=== PATIENT | male | born 1965 | race Caucasian/White ===

== ENCOUNTER 2021-03-02 10:18 | Inpatient (IN) | payer MEDICAID, SELFPAY ==
[2021-03-02] VITALS (19 sets, daily range): BP systolic 132–167; BP diastolic 71–91; PULSE 96–113; RESP 14–24; TEMP 36.7–38.1; O2SAT 88–94; BMI 34.8
--- NOTE | 2021-03-02 10:27 | DI.RAD.S_ITS ---
PROCEDURE: XR CHEST 1V INDICATIONS: chest pain TECHNIQUE: One view of the chest was acquired. COMPARISON: None. FINDINGS: Surgical changes and devices: None. Lungs and pleura: A subtle infiltrate in the left lower lobe is probably vasculature or overlying soft tissue. No focal consolidation or mass. Mediastinum: Mediastinal contours appear normal. Heart size is normal. Bones and chest wall: No suspicious bony lesions. Overlying soft tissues appear unremarkable. IMPRESSION: 1. Subtle infiltrate in left lower lobe is likely vasculature or overlying soft tissue versus an early pneumonia or atelectasis. 2. Otherwise no acute cardiopulmonary abnormality. Dictated by: Ravinder Mason M.D. on 03/02/2021 at 10:03 Approved by: Ravinder Mason M.D. on 03/02/2021 at 10:07
--- NOTE | 2021-03-02 10:30 | ED.SYNCOPE ---
HPI - Syncope General Chief Complaint: Syncope Stated Complaint: passed out in shower this morning Time Seen by Provider: 03/02/21 10:23 Source: patient Mode of arrival: Wheelchair Limitations: no limitations History of Present Illness HPI narrative: This is a 55-year-old male comes emergency department with complaint of syncopal episode in the shower this morning patient states he has had a little bit of nasal congestion and sinus pressure since last week. Patient has not had any fevers. No chills. He has had some mild shortness of breath. He denies any chest pain or pressure. He denies any headache. He states that he felt lightheaded while ambulating to the shower he felt like he was going to pass out and thinks that he did in the shower. He does not recall hitting the floor. He is unsure if there was a loss of time but his states she heard 3 bumps like he may have fallen 3 times. He denies any vomiting he does feel nauseated right now. No diarrhea constipation. No urinary symptoms. He is unsure if his tetanus is up-to-date. He states he is supposed to be on a diuretic for hypertension and extra fluid. He denies any prior surgeries. No allergies to medications. He is not vaccinated for coronavirus. He denies tobacco, occasional alcohol, no illicit. His primary care is Sandra Willis and he is accompanied by his . Related Data Previous Rx's Medication Instructions Recorded losartan 50 mg tablet 50 mg PO DAILY #30 tab 03/04/21 metformin 500 mg tablet 500 mg PO 0800,1700 #60 tab 03/04/21 L.acidophilus-L.bulgar-B.bifid-S.thermoph 1 ea PO TIDWM #90 tab 03/14/21 1 billion cell-250 mg tablet (Bacid) albuterol sulfate 90 mcg/actuation 2 inh INHALATION Q4H PRN #1 ea 03/14/21 breath activated powder inhaler ascorbic acid (vitamin C) 500 mg 1,000 mg PO DAILY #120 tab 03/14/21 tablet (Vitamin C) aspirin 81 mg tablet,delayed 162 mg PO DAILY #60 tab 03/14/21 release cefdinir 300 mg capsule 300 mg PO BID #20 cap 03/14/21 cholecalciferol (vitamin D3) 25 1,000 unit PO DAILY #30 tab 03/14/21 mcg (1,000 unit) tablet codeine 10 mg-guaifenesin 100 mg/5 10 ml PO Q6H PRN #120 ml 03/14/21 mL oral liquid cyanocobalamin (vitamin B-12) 100 100 mcg PO DAILY #30 tab 03/14/21 mcg tablet (Vitamin B-12) dexamethasone 1 mg tablet 1 mg PO DIRECTED #30 tab 03/14/21 doxycycline hyclate 100 mg tablet 100 mg PO BID #20 tab 03/14/21 famotidine 40 mg tablet 20 mg PO BID #60 tab 03/14/21 furosemide 20 mg tablet 20 mg PO DAILY #30 tab 03/14/21 glyburide 5 mg tablet 5 mg PO DAILY #30 tab 03/14/21 guaifenesin 600 mg tablet, 600 mg PO BID #20 tab 03/14/21 extended release 12 hr (Mucus Relief ER) insulin lispro 100 unit/mL 0 unit (0 mL) SUBCUT ACHS #10 ml 03/14/21 subcutaneous solution (Humalog U-100 Insulin) ipratropium 0.5 mg-albuterol 3 mg 3 ml INHALATION Q4-6H PRN #90 ml 03/14/21 (2.5 mg base)/3 mL nebulization soln sucralfate 1 gram tablet 1 gm PO ACHS #120 tab 03/14/21 zinc sulfate 50 mg zinc (220 mg) 220 mg PO DAILY #30 cap 03/14/21 capsule Allergies Allergy/AdvReac Type Severity Reaction Status Date / Time No Known Drug Allergies Allergy Verified 03/02/21 10:27 Review of Systems Review of Systems ROS Unobtainable: All systems reviewed & are unremarkable except as noted in HPI and below Patient History Medical History Essential hypertension High cholesterol Hypertension Obesity (BMI 30-39.9) Syncope Surgical History H/O left inguinal hernia repair Family History Mother CAD (coronary artery disease) Diabetes mellitus Father CVA (cerebral vascular accident) Social History household members: spouse Smoking Status: Never smoker Smoking Status: Unknown if ever smoked alcohol intake frequency: holidays/special occasions only Substance Use Type: does not use Exam Narrative Exam Narrative: GEN: well nourished, well appearing male, alert and oriented x 3, patient appears to be in mild distress. HEENT: Atraumatic, pupils are equal round reactive to light, extraocular movements are intact, nares are clear. Throat is clear without any exudates, erythema, tonsillar enlargement or uvular deviation HEART: Tachycardic but Regular rate and rhythm without murmur, clicks, rubs. Pulses are equal in upper and lower extremities LUNGS:Lungs clear to auscultation, no wheezes, rales, mild crackles bilateral lower lobes, chest moves symmetrically ABD:bowel sounds normal, soft, non-tender, no guarding, rebound, rigidity, no masses noted, no hepatosplenomegaly :No CVA tenderness MSCL: Non-tender, no muscle atrophy, muscles strength 5/5 upper and lower extremities, full range of motion, normal gait NEURO:CN 2-12 intact, sensation normal SKIN: Patient has superficial laceration about 3 cm across the anterior odonnell there is no subcutaneous exposure. Initial Vital Signs Initial Vital Signs: Vital Signs Temperature 98.0 F 03/02/21 10:23 Pulse Rate 112 H 03/02/21 10:23 Respiratory Rate 14 03/02/21 10:23 Blood Pressure 167/91 H 03/02/21 10:23 Pulse Oximetry 93 03/02/21 10:23 Procedures Procedural Sedation ASA Class: I Additional Comments: Patient did require significant amount medications. He initially received 160 mg of propofol followed by 80 mg of ketamine. This actually made him more tense. Patient required additional propofol and had another 160 followed by 80mg for patient reached moderate sedation. Patient did finally relax and we were able to reduce the joint. He did tolerate the procedure well. Sling was placed. Scores PERC Score Age greater than or equal to 50 years: Yes Heart rate greater than or equal to 100 bpm: Yes Room Air O2 Sat less than 95%: Yes Unilateral leg swelling: No Recent trauma or surgery: No Hemoptysis: No Prior PE or DVT: No Hormone Use: No Total PERC Score: 3 Course Orders Ordered: Discontinued Medications Acetaminophen (Acetaminophen 325 Mg Tablet) 650 mg PO Q6HR PRN PRN Reason: Fever/Mild Pain (1-3) Last Admin: 03/02/21 17:22 Dose: 650 mg Documented by: VASU Dexamethasone (Dexamethasone 10 Mg/Ml Vial) 6 mg IV NOW ONE Stop: 03/02/21 14:33 Last Admin: 03/02/21 14:38 Dose: Not Given Documented by: JERMAINE Dextrose (Dextrose 50 % In Water 25 Gm/50 Ml Syringe) 25 gm IV PRN PRN; Protocol PRN Reason: Hypoglycemia Diphtheria/Tetanus/Acell Pertussis (Tet,Diph,Pertuss(Acell),Vac/Pf 0.5 Ml Syringe) 0.5 ml IM .ONCE ONE Stop: 03/02/21 11:05 Last Admin: 03/02/21 11:27 Dose: 0.5 ml Documented by: IBRAHIMA Enoxaparin Sodium (Enoxaparin 40 Mg/0.4 Ml Syringe) 40 mg SUBCUT DAILY KVNG Last Admin: 03/04/21 09:19 Dose: 40 mg Documented by: Admin: 03/03/21 10:17 Dose: 40 mg Documented by: VASU Guaifenesin/Codeine Phosphate (Codeine/Guaifenesin Liquid 5ml Udc) 5 ml PO Q6H PRN PRN Reason: Cough Last Admin: 03/03/21 18:08 Dose: 5 ml Documented by: Admin: 03/03/21 10:18 Dose: 5 ml Documented by: Admin: 03/02/21 22:19 Dose: 5 ml Documented by: MARCOS Remdesivir 200 mg/ Sodium (Chloride) 250 mls @ 250 mls/hr IV NOW ONE Stop: 03/02/21 15:31 Last Infusion: 03/02/21 16:06 Dose: 0 mls/hr Documented by: Admin: 03/02/21 15:04 Dose: 250 mls/hr Documented by: IBRAHIMA Lactated Ringer's (Lactated Ringers) 1,000 mls @ 200 mls/hr IV CONT KVNG Stop: 03/02/21 21:14 Last Admin: 03/02/21 17:22 Dose: 200 mls/hr Documented by: VASU Remdesivir 100 mg/ Sodium (Chloride) 250 mls @ 250 mls/hr IV 1500 KVNG Stop: 03/06/21 15:59 Last Admin: 03/04/21 16:12 Dose: Not Given Documented by: Infusion: 03/04/21 13:32 Dose: 0 mls/hr Documented by: Admin: 03/03/21 15:12 Dose: 250 mls/hr Documented by: VASU Ibuprofen (Ibuprofen 600 Mg Tablet) 600 mg PO Q6HR PRN PRN Reason: Fever/Mild Pain (1-3) Last Admin: 03/03/21 18:08 Dose: 600 mg Documented by: Admin: 03/03/21 10:18 Dose: 600 mg Documented by: VASU Insulin Glargine (Insulin Glargine 100 Unit/Ml 3ml Pen) 20 unit SUBCUT BEDTIME KVNG Last Admin: 03/03/21 22:20 Dose: 20 unit Documented by: MARCOS Pikeigned by: ALBA Admin: 03/02/21 22:20 Dose: 20 unit Documented by: MARCOS Albert by: ALBA Insulin Human Lispro (Insulin Lispro 100 Unit/Ml 3ml Vial) 0 unit SUBCUT ACHS KVNG; Protocol Last Admin: 03/04/21 13:30 Dose: 1 unit Documented by: PALMIRA Pikeigned by: LASHAY Admin: 03/04/21 09:14 Dose: 1 unit Documented by: PALMIRA Pikeigned by: DANIEL Admin: 03/03/21 22:21 Dose: Not Given Documented by: Admin: 03/03/21 18:12 Dose: 1 unit Documented by: VASU Pikeigned by: LASHAY Admin: 03/03/21 12:30 Dose: 100 unit Documented by: VASU Pikeigned by: LASHAY Admin: 03/03/21 10:33 Dose: 1 unit Documented by: VASU Pikeigned by: LASHAY Admin: 03/02/21 22:20 Dose: Not Given Documented by: Admin: 03/02/21 17:25 Dose: 5 unit Documented by: VASU Albert by: KATHY Losartan Potassium (Losartan 50 Mg Tablet) 50 mg PO DAILY [facility] Last Admin: 03/04/21 09:19 Dose: 50 mg Documented by: Admin: 03/03/21 10:18 Dose: 50 mg Documented by: VASU Losartan Potassium (Losartan 50 Mg Tablet) 50 mg PO NOW ONE Stop: 03/02/21 16:05 Last Admin: 03/02/21 17:22 Dose: 50 mg Documented by: VASU Magnesium Hydroxide (Magnesium Hydroxide 30 Ml Udc) 30 ml PO DAILY PRN PRN Reason: Constipation Metformin HCl (Metformin Hcl 500 Mg Tablet) 500 mg PO 0800,1700 [facility] Last Admin: 03/04/21 09:20 Dose: 500 mg Documented by: Admin: 03/03/21 18:09 Dose: 500 mg Documented by: Admin: 03/03/21 10:18 Dose: 500 mg Documented by: Admin: 03/02/21 17:22 Dose: 500 mg Documented by: VASU Naloxone HCl (Naloxone 0.4 Mg/Ml Vial) 0.2 mg IV Q2MIN PRN PRN Reason: Opiate Reversal Ondansetron HCl (Ondansetron 4 Mg/2 Ml Inj) 4 mg IV NOW ONE Stop: 03/02/21 10:57 Last Admin: 03/02/21 10:58 Dose: 4 mg Documented by: WOLF Ondansetron HCl (Ondansetron 4 Mg/2 Ml Inj) 4 mg IV NOW ONE Stop: 03/02/21 14:06 Last Admin: 03/02/21 14:12 Dose: 4 mg Documented by: LAMONT Ondansetron HCl (Ondansetron 4 Mg/2 Ml Inj) 4 mg IV Q8HR PRN PRN Reason: Nausea And Vomiting Sodium Chloride (Sodium Chloride 0.9% Flush) 10 ml IV PRN PRN PRN Reason: Flush Sodium Chloride (Sodium Chloride 0.9% Flush) 10 ml IV BID [facility] Last Admin: 03/04/21 09:20 Dose: 10 ml Documented by: Admin: 03/03/21 22:22 Dose: 10 ml Documented by: Admin: 03/03/21 10:17 Dose: 10 ml Documented by: VASU Vital Signs Vital signs: Vital Signs - 8 hr 03/02/21 10:23 03/02/21 10:25 03/02/21 10:30 Temperature 98.0 F Pulse Rate 112 H 110 H 104 H Respiratory Rate 14 15 19 Blood Pressure 167/91 H 167/91 H 162/86 H Pulse Oximetry 93 93 93 03/02/21 11:07 03/02/21 11:30 03/02/21 12:00 Temperature Pulse Rate 110 H 107 H 101 H Respiratory Rate 20 24 23 Blood Pressure 162/86 H Pulse Oximetry 92 91 90 L 03/02/21 12:30 03/02/21 12:35 03/02/21 13:00 Temperature Pulse Rate 96 H 104 H 96 H Respiratory Rate 21 20 20 Blood Pressure 142/81 H 141/71 H 132/74 Pulse Oximetry 91 92 92 03/02/21 13:30 03/02/21 14:00 03/02/21 14:30 Temperature Pulse Rate 106 H 107 H 104 H Respiratory Rate 20 20 20 Blood Pressure 139/79 Pulse Oximetry 91 91 88 L MDM - Syncope Lab Data Result diagrams: 03/03/21 13:00 03/03/21 13:00 Labs: Lab Results 03/02/21 03/02/21 03/02/21 Range/Units 10:25 10:25 10:25 WBC 5.3 (4.5-11.0) X10^3/uL RBC 5.33 (4.5-5.9) X10^6/uL Hgb 15.6 (13.5-17.5) g/dL Hct 46.4 (41-53) % MCV 86.9 (80-100) fL MCH 29.3 (26-34) PG MCHC 33.7 (30-36) % RDW 12.7 (11.6-14.8) % Plt Count 136 L (150-400) X10^3/uL Neut % (Auto) 73.0 (50-75) % Lymph % (Auto) 16.8 L (25-40) % Benzie % (Auto) 9.4 (3-14) % Eos % (Auto) 0.1 L (2-4) % Baso % (Auto) 0.7 (0-2) % Neut # (Auto) 3900 (7577-1633) /uL Lymph # (Auto) 900 L (0689-7220) /uL Benzie # (Auto) 500 (0-900) /uL Eos # (Auto) 0 (0-450) /uL Baso # (Auto) 0 (0-100) /uL PT (10.1-12.7) SECONDS INR (0.9-1.3) APTT (26.4-36.2) SECONDS D-Dimer (<230) ng/mL Sodium 132 L (137-145) mmol/L Potassium 4.8 (3.4-5.1) mmol/L Chloride 97 L (98-107) mmol/L Carbon Dioxide 29 (22-32) mmol/L BUN 14 (9-20) mg/dL Creatinine 1.05 (0.66-1.25) mg/dL Estimated GFR > 60.0 (>60) mL/min BUN/Creatinine Ratio 13.3 (6-22) Glucose 337 H (70-100) mg/dL Hemoglobin A1c (4.0-6.0) % Lactate (0.7-2.1) mmol/L Calcium 8.5 (8.4-10.2) mg/dL Magnesium 2.0 (1.6-2.3) mg/dL Total Bilirubin 0.5 (0.2-1.3) mg/dL AST 207 H (17-59) IU/L ALT 239 H (<50) IU/L Alkaline Phosphatase 60 (38-126) U/L Total Creatine Kinase 1114 H (55-170) U/L CK-MB (CK-2) 3.39 H (<2.37) ng/mL CK-MB (CK-2) Rel Index 0.3 L (1.5-5.0) % Troponin I < 0.012 (0.01-0.034) ng/mL NT-Pro-B Natriuret Pep (<125) pg/mL Total Protein 8.0 (6.3-8.2) g/dL Albumin 4.3 (3.5-5.0) g/dL Globulin 3.7 (1.7-4.1) g/dL Albumin/Globulin Ratio 1.2 (1.0-2.8) Lipase 254 (23-300) U/L SARS-CoV-2 (PCR) Positive H (Negative) Influenza A (RT-PCR) (NEGATIVE) Influenza B (RT-PCR) (NEGATIVE) 03/02/21 03/02/21 03/02/21 Range/Units 10:25 11:00 11:00 WBC (4.5-11.0) X10^3/uL RBC (4.5-5.9) X10^6/uL Hgb (13.5-17.5) g/dL Hct (41-53) % MCV (80-100) fL MCH (26-34) PG MCHC (30-36) % RDW (11.6-14.8) % Plt Count (150-400) X10^3/uL Neut % (Auto) (50-75) % Lymph % (Auto) (25-40) % Benzie % (Auto) (3-14) % Eos % (Auto) (2-4) % Baso % (Auto) (0-2) % Neut # (Auto) (3450-4386) /uL Lymph # (Auto) (0078-1698) /uL Benzie # (Auto) (0-900) /uL Eos # (Auto) (0-450) /uL Baso # (Auto) (0-100) /uL PT (10.1-12.7) SECONDS INR (0.9-1.3) APTT (26.4-36.2) SECONDS D-Dimer (<230) ng/mL Sodium (137-145) mmol/L Potassium (3.4-5.1) mmol/L Chloride (98-107) mmol/L Carbon Dioxide (22-32) mmol/L BUN (9-20) mg/dL Creatinine (0.66-1.25) mg/dL Estimated GFR (>60) mL/min BUN/Creatinine Ratio (6-22) Glucose (70-100) mg/dL Hemoglobin A1c 10.9 H (4.0-6.0) % Lactate (0.7-2.1) mmol/L Calcium (8.4-10.2) mg/dL Magnesium (1.6-2.3) mg/dL Total Bilirubin (0.2-1.3) mg/dL AST (17-59) IU/L ALT (<50) IU/L Alkaline Phosphatase (38-126) U/L Total Creatine Kinase (55-170) U/L CK-MB (CK-2) (<2.37) ng/mL CK-MB (CK-2) Rel Index (1.5-5.0) % Troponin I (0.01-0.034) ng/mL NT-Pro-B Natriuret Pep (<125) pg/mL Total Protein (6.3-8.2) g/dL Albumin (3.5-5.0) g/dL Globulin (1.7-4.1) g/dL Albumin/Globulin Ratio (1.0-2.8) Lipase (23-300) U/L SARS-CoV-2 (PCR) Positive H (Negative) Influenza A (RT-PCR) Flu a negative (NEGATIVE) Influenza B (RT-PCR) Flu b negative (NEGATIVE) 03/02/21 03/02/21 03/02/21 Range/Units 11:23 11:23 11:23 WBC (4.5-11.0) X10^3/uL RBC (4.5-5.9) X10^6/uL Hgb (13.5-17.5) g/dL Hct (41-53) % MCV (80-100) fL MCH (26-34) PG MCHC (30-36) % RDW (11.6-14.8) % Plt Count (150-400) X10^3/uL Neut % (Auto) (50-75) % Lymph % (Auto) (25-40) % Benzie % (Auto) (3-14) % Eos % (Auto) (2-4) % Baso % (Auto) (0-2) % Neut # (Auto) (7141-1507) /uL Lymph # (Auto) (0042-8940) /uL Benzie # (Auto) (0-900) /uL Eos # (Auto) (0-450) /uL Baso # (Auto) (0-100) /uL PT (10.1-12.7) SECONDS INR (0.9-1.3) APTT (26.4-36.2) SECONDS D-Dimer < 200 (<230) ng/mL Sodium (137-145) mmol/L Potassium (3.4-5.1) mmol/L Chloride (98-107) mmol/L Carbon Dioxide (22-32) mmol/L BUN (9-20) mg/dL Creatinine (0.66-1.25) mg/dL Estimated GFR (>60) mL/min BUN/Creatinine Ratio (6-22) Glucose (70-100) mg/dL Hemoglobin A1c (4.0-6.0) % Lactate 2.9 H (0.7-2.1) mmol/L Calcium (8.4-10.2) mg/dL Magnesium (1.6-2.3) mg/dL Total Bilirubin (0.2-1.3) mg/dL AST (17-59) IU/L ALT (<50) IU/L Alkaline Phosphatase (38-126) U/L Total Creatine Kinase (55-170) U/L CK-MB (CK-2) (<2.37) ng/mL CK-MB (CK-2) Rel Index (1.5-5.0) % Troponin I (0.01-0.034) ng/mL NT-Pro-B Natriuret Pep < 11 (<125) pg/mL Total Protein (6.3-8.2) g/dL Albumin (3.5-5.0) g/dL Globulin (1.7-4.1) g/dL Albumin/Globulin Ratio (1.0-2.8) Lipase (23-300) U/L SARS-CoV-2 (PCR) (Negative) Influenza A (RT-PCR) (NEGATIVE) Influenza B (RT-PCR) (NEGATIVE) 03/02/21 03/02/21 03/02/21 Range/Units 11:23 14:03 14:03 WBC (4.5-11.0) X10^3/uL RBC (4.5-5.9) X10^6/uL Hgb (13.5-17.5) g/dL Hct (41-53) % MCV (80-100) fL MCH (26-34) PG MCHC (30-36) % RDW (11.6-14.8) % Plt Count (150-400) X10^3/uL Neut % (Auto) (50-75) % Lymph % (Auto) (25-40) % Benzie % (Auto) (3-14) % Eos % (Auto) (2-4) % Baso % (Auto) (0-2) % Neut # (Auto) (1105-9120) /uL Lymph # (Auto) (4670-8414) /uL Benzie # (Auto) (0-900) /uL Eos # (Auto) (0-450) /uL Baso # (Auto) (0-100) /uL PT 12.3 (10.1-12.7) SECONDS INR 1.1 (0.9-1.3) APTT 34 (26.4-36.2) SECONDS D-Dimer (<230) ng/mL Sodium (137-145) mmol/L Potassium (3.4-5.1) mmol/L Chloride (98-107) mmol/L Carbon Dioxide (22-32) mmol/L BUN (9-20) mg/dL Creatinine (0.66-1.25) mg/dL Estimated GFR (>60) mL/min BUN/Creatinine Ratio (6-22) Glucose (70-100) mg/dL Hemoglobin A1c (4.0-6.0) % Lactate 1.4 (0.7-2.1) mmol/L Calcium (8.4-10.2) mg/dL Magnesium (1.6-2.3) mg/dL Total Bilirubin (0.2-1.3) mg/dL AST (17-59) IU/L ALT (<50) IU/L Alkaline Phosphatase (38-126) U/L Total Creatine Kinase (55-170) U/L CK-MB (CK-2) (<2.37) ng/mL CK-MB (CK-2) Rel Index (1.5-5.0) % Troponin I < 0.012 (0.01-0.034) ng/mL NT-Pro-B Natriuret Pep (<125) pg/mL Total Protein (6.3-8.2) g/dL Albumin (3.5-5.0) g/dL Globulin (1.7-4.1) g/dL Albumin/Globulin Ratio (1.0-2.8) Lipase (23-300) U/L SARS-CoV-2 (PCR) (Negative) Influenza A (RT-PCR) (NEGATIVE) Influenza B (RT-PCR) (NEGATIVE) Imaging Data Chest x-ray: Radiologist's Impression: [address] [address] XRay Report Signed Patient: Glenroy Sloan MR#: [id number] : 1965 Acct:[id number] Age/Sex: 55 / M Date of Service: 03/02/21 Loc: ED Accession Number: [id number] ?? Procedure: XR chest 1V Ordering Provider: Mank,Dominique C D.O. PROCEDURE:? XR CHEST 1V ? INDICATIONS:? chest pain ? TECHNIQUE:? One view of the chest was acquired.? ? COMPARISON:? None. ? FINDINGS:? ? Surgical changes and devices:? None.? ? Lungs and pleura:? A subtle infiltrate in the left lower lobe is probably vasculature or overlying soft tissue.? No focal consolidation or mass. ? Mediastinum:? Mediastinal contours appear normal.? Heart size is normal.? ? Bones and chest wall:? No suspicious bony lesions.? Overlying soft tissues appear unremarkable.? ? IMPRESSION:? 1. Subtle infiltrate in left lower lobe is likely vasculature or overlying soft tissue versus an early pneumonia or atelectasis. 2. Otherwise no acute cardiopulmonary abnormality. ? ? Dictated by: Ravinder Mason M.D. on 03/02/2021 at 10:03 ? ? Approved by: Ravinder Mason M.D. on 03/02/2021 at 10:07?? CT scan - head: Radiologist's Impression: Glenroy Sloan??55??M??1965 ? Allergy/Adv: No Known Drug Allergies (More??) Close Tibia/Fibula X-Ray (Signed) Ravinder Mason - 03/02/[address] (Signed) Ravinder Mason - 03/02/21 Chest X-Ray (Signed) Ravinder Mason - 03/02/21 Launch?[place] [address] CT Scan Report Signed Patient: Glenroy Sloan MR#: [id number] : 1965 Acct:[id number] Age/Sex: 55 / M Date of Service: 03/02/21 Loc: ED Accession Number: [id number] ?? Procedure: CT head/brain wo con Ordering Provider: Dominique Luz D.O. PROCEDURE:? CT HEAD/BRAIN WO CON ? INDICATIONS:? syncope ? TECHNIQUE:? Noncontrast 4.5 mm thick angled axial sections acquired from the foramen magnum to the vertex, with coronal and sagittal reformats.? For radiation dose reduction, the following was used:? automated exposure control, adjustment of mA and/or kV according to patient size.? ? COMPARISON:? None. ? FINDINGS:? Image quality:? Excellent.? ? CSF spaces:? Basal cisterns are patent.? No extra-axial fluid collections.? Ventricles are normal in size and shape.? ? Brain:? No midline shift.? No intracranial masses or hemorrhage.? Mojica-white matter interface is normal.? ? Skull and face:? Calvarium and visualized facial bones are intact, without suspicious lesions.? ? Sinuses:? Visualized sinuses and mastoids are clear.? ? IMPRESSION:? No acute intracranial abnormality. ? ? Dictated by: Ravinder Mason M.D. on 03/02/2021 at 10:19 ? ? Approved by: Ravinder Mason M.D. on 03/02/2021 at 10:21?? Extremity x-ray #1: Radiologist's Impression: [address] [address] XRay Report Signed Patient: Glenroy Sloan MR#: [id number] : 1965 Acct:[id number] Age/Sex: 55 / M Date of Service: 03/02/21 Loc: ED Accession Number: [id number] ?? Procedure: XR tibia fibula RT 2V Ordering Provider: Dominique Luz D.O. PROCEDURE:? XR TIBIA FUBULA RT 2V ? INDICATIONS:? right leg pain, syncope ? TECHNIQUE:? 2 views of the tibia and fibula were acquired.? ? COMPARISON:? None. ? FINDINGS:? ? Bones:? No fractures or dislocations.? No suspicious bony lesions.? ? Soft tissues:? No suspicious soft tissue calcifications or masses.? ? IMPRESSION:? No acute abnormality of the right tibia and fibula. ? ? Dictated by: Ravinder Mason M.D. on 03/02/2021 at 10:08 ? ? Approved by: Ravinder Mason M.D. on 03/02/2021 at 10:09?? ECG Data Attestation: I personally reviewed and interpreted this ECG as follows: Prior ECG tracings: not available for review Interpretation: Sinus tach, rate of 102 DE 154 QRS is [address] changes. Nonspecific change Q-wave in 3 and AVF. MDM Narrative Medical decision making narrative: This is a 55-year-old male who comes in with complaint of syncope in the shower. He has had a little bit of a sinus infection recently and he test positive for COVID today. Patient's head CT is negative, chest x-ray does show some pneumonia, his labs are negative for D-dimer, troponin is not elevated, patient has not been persistently hypoxic but has had tachycardia. He had a single dip into the 89% range but has been typically in the 90-91% range. Discussed with Dr. Her gaming who accepts for admission. Because patient has not been hypoxic holding on dexamethasone but will give remdesivir. Patient did have a superficial laceration on his right anterior odonnell but does not require repair. Tib-fib x-ray is negative. Patient is high risk for decompensation with his elevated BMI, history of hypertension likely untreated diabetes as his glucose is in the 300 range today. Discharge Plan Departure Patient Disposition: Admitted as Observation Clinical Impression: Syncope, Pneumonia due to COVID-19 virus Admit Date/Time: 03/03/21 09:21 Admit Provider: Bernard Ascencio
[2021-03-02 10:33] LABS: Add Manual Diff / Slide Review NO; Basophils Absolute Auto 0 /uL (0-100); Basophils Percent Auto 0.7 % (0-2); Eosinophils Absolute Auto 0 /uL (0-450); Eosinophils Percent Auto 0.1 % (2-4); Hematocrit 46.4 % (41-53); Hemoglobin 15.6 g/dL (13.5-17.5); Lymphocytes Absolute Auto 900 /uL (1100-4500); Lymphocytes Percent Auto 16.8 % (25-40); Mean Corpuscular HGB Conc 33.7 % (30-36); Mean Corpuscular Hemoglobin 29.3 PG (26-34); Mean Corpuscular Volume 86.9 fL (80-100); Monocytes Absolute Auto 500 /uL (0-900); Monocytes Percent Auto 9.4 % (3-14); Neutrophils Absolute Auto 3900 /uL (1500-7000); Platelet Count 136 X10^3/uL (150-400); Red Blood Cell Count 5.33 X10^6/uL (4.5-5.9); Red Cell Distribution Width 12.7 % (11.6-14.8); White Blood Cell Count 5.3 X10^3/uL (4.5-11.0)
[2021-03-02 10:48] LABS: COVID19 -Nasal RAPID POSITIVE (Negative)
--- NOTE | 2021-03-02 10:48 | DI.RAD.S_ITS ---
PROCEDURE: XR TIBIA FUBULA RT 2V INDICATIONS: right leg pain, syncope TECHNIQUE: 2 views of the tibia and fibula were acquired. COMPARISON: None. FINDINGS: Bones: No fractures or dislocations. No suspicious bony lesions. Soft tissues: No suspicious soft tissue calcifications or masses. IMPRESSION: No acute abnormality of the right tibia and fibula. Dictated by: Ravinder Mason M.D. on 03/02/2021 at 10:08 Approved by: Ravinder Mason M.D. on 03/02/2021 at 10:09
--- NOTE | 2021-03-02 10:48 | DI.CT.S_ITS ---
PROCEDURE: CT HEAD/BRAIN WO CON INDICATIONS: syncope TECHNIQUE: Noncontrast 4.5 mm thick angled axial sections acquired from the foramen magnum to the vertex, with coronal and sagittal reformats. For radiation dose reduction, the following was used: automated exposure control, adjustment of mA and/or kV according to patient size. COMPARISON: None. FINDINGS: Image quality: Excellent. CSF spaces: Basal cisterns are patent. No extra-axial fluid collections. Ventricles are normal in size and shape. Brain: No midline shift. No intracranial masses or hemorrhage. Mojica-white matter interface is normal. Skull and face: Calvarium and visualized facial bones are intact, without suspicious lesions. Sinuses: Visualized sinuses and mastoids are clear. IMPRESSION: No acute intracranial abnormality. Dictated by: Ravinder Mason M.D. on 03/02/2021 at 10:19 Approved by: Ravinder Mason M.D. on 03/02/2021 at 10:21
[2021-03-02 10:49] LABS: Alanine Aminotransferase 239 IU/L (<50); Albumin 4.3 g/dL (3.5-5.0); Albumin Globulin Ratio 1.2 (1.0-2.8); Alkaline Phosphatase 60 U/L (38-126); Aspartate Aminotransferase 207 IU/L (17-59); BUN Creatinine Ratio 13.3 (6-22); Bilirubin Total 0.5 mg/dL (0.2-1.3); Blood Urea Nitrogen 14 mg/dL (9-20); Calcium 8.5 mg/dL (8.4-10.2); Carbon Dioxide 29 mmol/L (22-32); Chloride 97 mmol/L (98-107); Creatine Kinase 1114 U/L (55-170); Estimated Glomerular Filt Rate > 60.0 mL/min (>60); Globulin 3.7 g/dL (1.7-4.1); Glucose 337 mg/dL (70-100); HEMOLYSIS < 15 (0-50); Lipase 254 U/L (23-300); Potassium 4.8 mmol/L (3.4-5.1); Sodium 132 mmol/L (137-145)
[2021-03-02] MEDS: ONDANSETRON 4 MG/2 ML INJ IV ×2 (10:58→14:12)
[2021-03-02 11:00] LABS: Troponin I < 0.012 ng/mL (0.01-0.034)
[2021-03-02 11:03] LABS: CKMB % Relative Index 0.3 % (1.5-5.0); Creatine Kinase MB 3.39 ng/mL (<2.37)
[2021-03-02] MEDS: TET,DIPH,PERTUSS(ACELL),VAC/PF 0.5 ML SYRINGE IM (11:27)
[2021-03-02 11:48] LABS: INR 1.1 (0.9-1.3); Prothrombin Time 12.3 SECONDS (10.1-12.7)
[2021-03-02 11:49] LABS: Lactate (Lactic Acid) 2.9 mmol/L (0.7-2.1)
[2021-03-02 11:51] LABS: PTT Partial Thromboplastin Tim 34 SECONDS (26.4-36.2)
[2021-03-02 11:58] LABS: NT-proBNP (BNP-Adult 18+) < 11 pg/mL (<125)
[2021-03-02 12:12] LABS: COVID19 - ADMIT (NP swab/PCR) POSITIVE (Negative)
[2021-03-02 12:32] LABS: D Dimer < 200 ng/mL (<230)
--- NOTE | 2021-03-02 13:09 | PC.NURSE ---
[facility] [phone]
[2021-03-02 13:32] LABS: Reflexed Lactate in 2 Hours Y
[2021-03-02 14:24] LABS: Lactate 2HR (Lactic Acid Rflx) 1.4 mmol/L (0.7-2.1)
--- NOTE | 2021-03-02 14:40 | PC.NURSE ---
pt states he is ok to take remdesevir
[2021-03-02] MEDS: REMDESIVIR 200 MG in SODIUM CHLORIDE 0.9% 210 ML 250 ML IV (15:04)
--- NOTE | 2021-03-02 16:34 | P.HP_ITS ---
History of Present Illness History of Present Illness Date Patient Seen: 03/02/21 Time Patient Seen: 15:00 Chief complaint: passed out in shower this morning Narrative: Patient is 55-year-old male with obesity, hypertension not currently on medication, presented after passing out in the shower this morning. Patient states he has been experiencing sinus infection symptoms for the past week. Specifically he has been feverish, sinus pressure, has been mildly out of breath and has had a mild cough. Patient states his fever finally broke 3 nights ago and he was starting to feel better. Denies nausea or vomiting. This morning he started to feel acutely dizzy while in the shower and subsequently passed out and fell to the shower floor. He got a superficial abrasion on his right leg. Denies chest pain or palpitations. On ED eval he was COVID positive. Additionally he has been moderately hypertensive and tachycardic with respiratory rate in low 20s. He has been mildly hypoxic with O2 sats dropping to 88-89% on room air. Blood work showed normal WBC, mild elevated LFTs, glucose of 337, normal troponin and D-dimer, elevated CK 1100, creatinine 1.05. Lactate was 2.9 initially and 1.4 on repeat. Chest x-ray showed early infiltrate in left lower lobe. Patient denies prior history of diabetes. Patient is not previously vaccinated for COVID. Social history: Nonsmoker Family history: Unremarkable Patient History Family & Social History Safety & Behavioral: Feels Safe in Current Yes Environment Been Physically Hurt or No Threatened By a Person Tobacco & Substance use: Smoking Status Unknown if ever smoked alcohol intake frequency holiday/special occasion Substance Use Type does not use Meds Home Medications and Allergies Allergies Allergy/AdvReac Type Severity Reaction Status Date / Time No Known Drug Allergies Allergy Verified 03/02/21 10:27 Review of Systems Review of Systems Narrative: Complete 10 point ROS negative except as noted above. Exam Vital Signs (past 8 hours): - 03/02/21 10:23 03/02/21 10:25 03/02/21 10:30 Temperature 98.0 F Pulse Rate 112 H 110 H 104 H Respiratory Rate 14 15 19 Blood Pressure 167/91 H 167/91 H 162/86 H Pulse Oximetry 93 93 93 03/02/21 11:07 03/02/21 11:30 03/02/21 12:00 Temperature Pulse Rate 110 H 107 H 101 H Respiratory Rate 20 24 23 Blood Pressure 162/86 H Pulse Oximetry 92 91 90 L 03/02/21 12:30 03/02/21 12:35 03/02/21 13:00 Temperature Pulse Rate 96 H 104 H 96 H Respiratory Rate 21 20 20 Blood Pressure 142/81 H 141/71 H 132/74 Pulse Oximetry 91 92 92 03/02/21 13:30 03/02/21 14:00 03/02/21 14:30 Temperature Pulse Rate 106 H 107 H 104 H Respiratory Rate 20 20 20 Blood Pressure 139/79 Pulse Oximetry 91 91 88 L 03/02/21 14:47 03/02/21 14:49 03/02/21 15:00 Temperature Pulse Rate 109 H 103 H Respiratory Rate 19 21 Blood Pressure 143/91 H 146/84 H Pulse Oximetry 92 94 93 03/02/21 15:30 03/02/21 16:00 Temperature Pulse Rate 113 H 99 H Respiratory Rate 22 23 Blood Pressure 162/89 H 162/83 H Pulse Oximetry 93 92 Oxygen Delivery Method Room Air Oxygen Flow Rate 2 Narrative Exam Narrative: General: Alert overweight male without labored breathing with occasional cough HEENT: Nontraumatic, pupils equal and reactive, EOMI Neck: No lymphadenopathy Lungs: Clear Heart: Regular rhythm without murmur Abdomen: Soft, nontender, no HSM Extremities: Nonedematous, there is bruise on right knee and superficial laceration on lower [place] Neurological: Affect normal, fully oriented, nonfocal Objective Labs Result Diagrams: 03/02/21 10:25 03/02/21 10:25 Labs: Laboratory Results - last 24 hr 03/02/21 03/02/21 03/02/21 10:25 10:25 10:25 WBC 5.3 RBC 5.33 Hgb 15.6 Hct 46.4 MCV 86.9 MCH 29.3 MCHC 33.7 RDW 12.7 Plt Count 136 L Neut % (Auto) 73.0 Lymph % (Auto) 16.8 L [place] % (Auto) 9.4 Eos % (Auto) 0.1 L Baso % (Auto) 0.7 Neut # (Auto) 3900 Lymph # (Auto) 900 L [place] # (Auto) 500 Eos # (Auto) 0 Baso # (Auto) 0 PT INR APTT D-Dimer Sodium 132 L Potassium 4.8 Chloride 97 L Carbon Dioxide 29 BUN 14 Creatinine 1.05 Estimated GFR > 60.0 BUN/Creatinine Ratio 13.3 Glucose 337 H Lactate Calcium 8.5 Magnesium 2.0 Total Bilirubin 0.5 AST 207 H ALT 239 H Alkaline Phosphatase 60 Total Creatine Kinase 1114 H CK-MB (CK-2) 3.39 H CK-MB (CK-2) Rel Index 0.3 L Troponin I < 0.012 NT-Pro-B Natriuret Pep Total Protein 8.0 Albumin 4.3 Globulin 3.7 Albumin/Globulin Ratio 1.2 Lipase 254 SARS-CoV-2 (PCR) Positive H 03/02/21 03/02/21 03/02/21 11:00 11:23 11:23 WBC RBC Hgb Hct MCV MCH MCHC RDW Plt Count Neut % (Auto) Lymph % (Auto) [place] % (Auto) Eos % (Auto) Baso % (Auto) Neut # (Auto) Lymph # (Auto) [place] # (Auto) Eos # (Auto) Baso # (Auto) PT INR APTT D-Dimer < 200 Sodium Potassium Chloride Carbon Dioxide BUN Creatinine Estimated GFR BUN/Creatinine Ratio Glucose Lactate Calcium Magnesium Total Bilirubin AST ALT Alkaline Phosphatase Total Creatine Kinase CK-MB (CK-2) CK-MB (CK-2) Rel Index Troponin I NT-Pro-B Natriuret Pep < 11 Total Protein Albumin Globulin Albumin/Globulin Ratio Lipase SARS-CoV-2 (PCR) Positive H 03/02/21 03/02/21 03/02/21 11:23 11:23 14:03 WBC RBC Hgb Hct MCV MCH MCHC RDW Plt Count Neut % (Auto) Lymph % (Auto) [place] % (Auto) Eos % (Auto) Baso % (Auto) Neut # (Auto) Lymph # (Auto) [place] # (Auto) Eos # (Auto) Baso # (Auto) PT 12.3 INR 1.1 APTT 34 D-Dimer Sodium Potassium Chloride Carbon Dioxide BUN Creatinine Estimated GFR BUN/Creatinine Ratio Glucose Lactate 2.9 H 1.4 Calcium Magnesium Total Bilirubin AST ALT Alkaline Phosphatase Total Creatine Kinase CK-MB (CK-2) CK-MB (CK-2) Rel Index Troponin I NT-Pro-B Natriuret Pep Total Protein Albumin Globulin Albumin/Globulin Ratio Lipase SARS-CoV-2 (PCR) Assessment & Plan Assessment & Plan narrative: 1. Syncope -this was situational occurring in the shower and preceded by dizziness/lightheadedness -vitals notable for mild hypertension and sinus tachycardia -etiology unclear but likely relative volume depletion due to acute illness with COVID -at risk for acute PE due to COVID but he has normal D-dimer and absence of unilateral extremity swelling, with better alternative diagnosis -telemetry monitoring -EKG -LR x1 L 2. COVID-19 pneumonia with acute hypoxic respiratory failure -chest x-ray with early left lower lung pneumonia with symptom onset 1 week [employer] -initial O2 sat 88-89% on room air, JEZ index 4.4 at 2 hours low risk of requiring high-flow -O2 nasal cannula to maintain sat greater than 88% -remdesivir 200 mg IV x1 then 100 mg IV q.d. x up to 4 days -hold off on dexamethasone due to significant elevated glucose as well as at this time fairly mild hypoxia, start dexamethasone if patient has deterioration in respiratory status -normal D-dimer, start standard dose enoxaparin for DVT prophylaxis -check influenza PCR 3. Type 2 diabetes, new diagnosis -admitted glucose 337 -check A1c -start Lantus 20 units HS and medium dose insulin sliding scale -start metformin 500 mg b.i.d. 4. Hypertension, chronic untreated -started losartan 50 mg qd Code status: Full code Admit status: Observation. Patient may require inpatient if pneumonia worsens any gets more hypoxic or needs to be on continued IV medication. Patient has risk factors for severe disease with obesity, diabetes and hypertension. Time Spent With Patient Critical Care time: I spent a total of [] minutes of critical care time on this patient's care today; this time is exclusive of procedural time.
[2021-03-02 17:06] LABS: Hemoglobin A1C% w Est Avg Glu 10.9 % (4.0-6.0)
[2021-03-02] MEDS: ACETAMINOPHEN 325 MG TABLET 650 MG PO (17:22)
[2021-03-02] MEDS: LOSARTAN 50 MG TABLET PO (17:22)
[2021-03-02] MEDS: LACTATED RINGERS 1,000 ML 200 ML IV (17:22)
[2021-03-02] MEDS: METFORMIN HCL 500 MG TABLET PO (17:22)
[2021-03-02 17:23] LABS: Influenza A - CEPHEID Flu A NEGATIVE (NEGATIVE); Influenza B - CEPHEID Flu B NEGATIVE (NEGATIVE)
[2021-03-02] MEDS: INSULIN LISPRO 100 UNIT/ML 3ML VIAL SUBCUT (17:25)
[2021-03-02 18:11] LABS: Troponin I < 0.012 ng/mL (0.01-0.034)
[2021-03-02] MEDS: CODEINE/GUAIFENESIN LIQUID 5ML UDC 5 ML PO (22:19)
[2021-03-02] MEDS: INSULIN GLARGINE 100 UNIT/ML 3ML PEN 20 UNIT SUBCUT (22:20)
[2021-03-03] VITALS (9 sets, daily range): BP systolic 123–139; BP diastolic 74–86; PULSE 88–109; RESP 17–20; TEMP 36.4–38.2; O2SAT 91–96
[2021-03-03] MEDS: ENOXAPARIN 40 MG/0.4 ML SYRINGE SUBCUT (10:17)
[2021-03-03] MEDS: SODIUM CHLORIDE 0.9% FLUSH 10 ML IV ×2 (10:17→22:22)
[2021-03-03] MEDS: METFORMIN HCL 500 MG TABLET PO ×2 (10:18→18:09)
[2021-03-03] MEDS: CODEINE/GUAIFENESIN LIQUID 5ML UDC 5 ML PO ×2 (10:18→18:08)
[2021-03-03] MEDS: IBUPROFEN 600 MG TABLET PO ×2 (10:18→18:08)
[2021-03-03] MEDS: LOSARTAN 50 MG TABLET PO (10:18)
--- NOTE | 2021-03-03 10:19 | CM.IDA ---
Initial DCP Assessment Note Pt is a 55 yo male, resident of [place], unvaccinated against COVID-19, arrives after passing out in his shower; found to have COVID-19 pneumonia. PCP: Sharan Willis Payer: JOHN Placed call into patient's room this morning; patient able to have conversation w/o being SOB. States he lives at home w/spouse and is indp at baseline. Spouse has not gotten tested for COVID-19 at this time but is quarantining per patient. Patient denies needs from CM team. No needs expected from DC planning team although will remain available in case this changes before DC Plan: DC home w/family via private auto, likely w/new home O2 REID Borden Discharge Planning/Care Management CM Discharge Assessment Start: 03/03/21 10:16 Freq: Status: Active Protocol: Document 03/03/21 10:16 ALEIDA (Rec: 03/03/21 10:19 ALEIDA [id number]) Discharge Planning Assessment Assigned Collateral Analyst REID Woodall DPOA/Assigned Designee Name Minal Sloan, spouse Contact Information [phone] Advance Directives? No History Provided By Patient Prior Living Arrangements House Household Members spouse Type of transporation used prior to Drives own vehicle admit Independent with ADL's Yes Is patient alert and oriented? Yes Comment Works fulltime Barriers to Discharge No Comment Home w/spouse Discharge Plan Home Transportation Arrangement Family Referrals Initiated None needed
--- NOTE | 2021-03-03 10:27 | PM.PN.1 ---
Subjective Subjective Date Patient Seen: 03/03/21 Exam Vital Signs (past 8 hours): - 03/03/21 05:00 03/03/21 05:09 03/03/21 08:00 Temperature 100.5 F H 100.2 F H Pulse Rate 109 H 108 H 100 H Respiratory Rate 18 20 18 Blood Pressure 139/82 138/83 Pulse Oximetry 92 95 91 03/03/21 08:35 Temperature Pulse Rate Respiratory Rate Blood Pressure Pulse Oximetry 92 Oxygen Delivery Method Nasal Cannula Oxygen Flow Rate 2 Objective Labs Result Diagrams: 03/02/21 10:25 03/02/21 10:25 Labs: Laboratory Results - last 24 hr 03/02/21 03/02/21 03/02/21 10:25 10:25 10:25 WBC 5.3 RBC 5.33 Hgb 15.6 Hct 46.4 MCV 86.9 MCH 29.3 MCHC 33.7 RDW 12.7 Plt Count 136 L Neut % (Auto) 73.0 Lymph % (Auto) 16.8 L [place] % (Auto) 9.4 Eos % (Auto) 0.1 L Baso % (Auto) 0.7 Neut # (Auto) 3900 Lymph # (Auto) 900 L [place] # (Auto) 500 Eos # (Auto) 0 Baso # (Auto) 0 PT INR APTT D-Dimer Sodium 132 L Potassium 4.8 Chloride 97 L Carbon Dioxide 29 BUN 14 Creatinine 1.05 Estimated GFR > 60.0 BUN/Creatinine Ratio 13.3 Glucose 337 H Hemoglobin A1c Lactate Calcium 8.5 Magnesium 2.0 Total Bilirubin 0.5 AST 207 H ALT 239 H Alkaline Phosphatase 60 Total Creatine Kinase 1114 H CK-MB (CK-2) 3.39 H CK-MB (CK-2) Rel Index 0.3 L Troponin I < 0.012 NT-Pro-B Natriuret Pep Total Protein 8.0 Albumin 4.3 Globulin 3.7 Albumin/Globulin Ratio 1.2 Lipase 254 SARS-CoV-2 (PCR) Positive H Influenza A (RT-PCR) Influenza B (RT-PCR) 03/02/21 03/02/21 03/02/21 10:25 11:00 11:00 WBC RBC Hgb Hct MCV MCH MCHC RDW Plt Count Neut % (Auto) Lymph % (Auto) [place] % (Auto) Eos % (Auto) Baso % (Auto) Neut # (Auto) Lymph # (Auto) [place] # (Auto) Eos # (Auto) Baso # (Auto) PT INR APTT D-Dimer Sodium Potassium Chloride Carbon Dioxide BUN Creatinine Estimated GFR BUN/Creatinine Ratio Glucose Hemoglobin A1c 10.9 H Lactate Calcium Magnesium Total Bilirubin AST ALT Alkaline Phosphatase Total Creatine Kinase CK-MB (CK-2) CK-MB (CK-2) Rel Index Troponin I NT-Pro-B Natriuret Pep Total Protein Albumin Globulin Albumin/Globulin Ratio Lipase SARS-CoV-2 (PCR) Positive H Influenza A (RT-PCR) Flu a negative Influenza B (RT-PCR) Flu b negative 03/02/21 03/02/21 03/02/21 11:23 11:23 11:23 WBC RBC Hgb Hct MCV MCH MCHC RDW Plt Count Neut % (Auto) Lymph % (Auto) [place] % (Auto) Eos % (Auto) Baso % (Auto) Neut # (Auto) Lymph # (Auto) [place] # (Auto) Eos # (Auto) Baso # (Auto) PT INR APTT D-Dimer < 200 Sodium Potassium Chloride Carbon Dioxide BUN Creatinine Estimated GFR BUN/Creatinine Ratio Glucose Hemoglobin A1c Lactate 2.9 H Calcium Magnesium Total Bilirubin AST ALT Alkaline Phosphatase Total Creatine Kinase CK-MB (CK-2) CK-MB (CK-2) Rel Index Troponin I NT-Pro-B Natriuret Pep < 11 Total Protein Albumin Globulin Albumin/Globulin Ratio Lipase SARS-CoV-2 (PCR) Influenza A (RT-PCR) Influenza B (RT-PCR) 03/02/21 03/02/21 03/02/21 11:23 14:03 14:03 WBC RBC Hgb Hct MCV MCH MCHC RDW Plt Count Neut % (Auto) Lymph % (Auto) [place] % (Auto) Eos % (Auto) Baso % (Auto) Neut # (Auto) Lymph # (Auto) [place] # (Auto) Eos # (Auto) Baso # (Auto) PT 12.3 INR 1.1 APTT 34 D-Dimer Sodium Potassium Chloride Carbon Dioxide BUN Creatinine Estimated GFR BUN/Creatinine Ratio Glucose Hemoglobin A1c Lactate 1.4 Calcium Magnesium Total Bilirubin AST ALT Alkaline Phosphatase Total Creatine Kinase CK-MB (CK-2) CK-MB (CK-2) Rel Index Troponin I < 0.012 NT-Pro-B Natriuret Pep Total Protein Albumin Globulin Albumin/Globulin Ratio Lipase SARS-CoV-2 (PCR) Influenza A (RT-PCR) Influenza B (RT-PCR) PFSH Medical History (Updated 03/02/21 @ 19:28 by Alexandra Melendez RN) High cholesterol Hypertension Syncope Surgical History (Updated 03/02/21 @ 19:29 by Alexandra Melendez RN) H/O left inguinal hernia repair Social History household members: spouse Smoking Status: Never smoker Assessment & Plan Time Spent With Patient Critical Care time: I spent a total of [] minutes of critical care time on this patient's care today; this time is exclusive of procedural time.
[2021-03-03] MEDS: INSULIN LISPRO 100 UNIT/ML 3ML VIAL SUBCUT ×3 (10:33→18:12)
[2021-03-03 13:11] LABS: Add Manual Diff / Slide Review NO; Basophils Absolute Auto 100 /uL (0-100); Basophils Percent Auto 2.8 % (0-2); Eosinophils Absolute Auto 0 /uL (0-450); Eosinophils Percent Auto 0.1 % (2-4); Hematocrit 42.7 % (41-53); Hemoglobin 14.4 g/dL (13.5-17.5); Lymphocytes Absolute Auto 1000 /uL (1100-4500); Lymphocytes Percent Auto 26.4 % (25-40); Mean Corpuscular HGB Conc 33.8 % (30-36); Mean Corpuscular Hemoglobin 29.1 PG (26-34); Mean Corpuscular Volume 86.1 fL (80-100); Monocytes Absolute Auto 400 /uL (0-900); Monocytes Percent Auto 10.8 % (3-14); Neutrophils Absolute Auto 2300 /uL (1500-7000); Neutrophils Percent Auto 59.9 % (50-75); Platelet Count 126 X10^3/uL (150-400); Red Blood Cell Count 4.96 X10^6/uL (4.5-5.9); Red Cell Distribution Width 12.7 % (11.6-14.8); White Blood Cell Count 3.8 X10^3/uL (4.5-11.0)
[2021-03-03 13:16] LABS: INR 1.1 (0.9-1.3); Prothrombin Time 12.8 SECONDS (10.1-12.7)
[2021-03-03 13:19] LABS: D Dimer 265 ng/mL (<230)
[2021-03-03 13:23] LABS: Alanine Aminotransferase 195 IU/L (<50); Albumin 3.9 g/dL (3.5-5.0); Albumin Globulin Ratio 1.1 (1.0-2.8); Alkaline Phosphatase 55 U/L (38-126); Aspartate Aminotransferase 158 IU/L (17-59); BUN Creatinine Ratio 15.4 (6-22); Bilirubin Total 0.6 mg/dL (0.2-1.3); Blood Urea Nitrogen 16 mg/dL (9-20); C-Reactive Protein Quant 2.5 mg/dL (<1.0); Calcium 8.1 mg/dL (8.4-10.2); Carbon Dioxide 26 mmol/L (22-32); Chloride 99 mmol/L (98-107); Creatine Kinase 1595 U/L (55-170); Estimated Glomerular Filt Rate > 60.0 mL/min (>60); Globulin 3.5 g/dL (1.7-4.1); Glucose 192 mg/dL (70-100); HEMOLYSIS < 15 (0-50); Lactate Dehydrogenase 1093 U/L (313-618); Potassium 4.6 mmol/L (3.4-5.1); Sodium 132 mmol/L (137-145); Total Protein 7.4 g/dL (6.3-8.2)
--- NOTE | 2021-03-03 13:54 | P.PN_ITS ---
Subjective Subjective Date Patient Seen: 03/03/21 Interval history: 55-year-old male with obesity, untreated hypertension, admitted due to active COVID infection for 1 week and episode of syncope in shower. He also has new diagnosis of uncontrolled diabetes. Patient's O2 sats this morning are 87% on room air, 91% on 2 L. He was 88% on room air in the ED. He has a cough and denies shortness of breath. He has been low-grade febrile. Exam Vital Signs (past 8 hours): - 03/03/21 08:00 03/03/21 08:35 03/03/21 12:30 Temperature 100.2 F H 97.6 F Pulse Rate 100 H 90 Respiratory Rate 18 17 Blood Pressure 138/83 123/74 Pulse Oximetry 91 92 92 Oxygen Delivery Method Room Air,Nasal Cannula Oxygen Flow Rate 2 Narrative Exam Narrative: General: Alert and cooperative male without labored breathing Lungs: Clear Heart: Regular with mild tachycardia Extremities: No edema Neurological: Normal affect and orientation Objective Labs Result Diagrams: 03/03/21 13:00 03/03/21 13:00 Labs: Laboratory Results - last 24 hr 03/02/21 03/02/21 03/02/21 10:25 11:00 14:03 WBC RBC Hgb Hct MCV MCH MCHC RDW Plt Count Neut % (Auto) Lymph % (Auto) [place] % (Auto) Eos % (Auto) Baso % (Auto) Neut # (Auto) Lymph # (Auto) [place] # (Auto) Eos # (Auto) Baso # (Auto) PT INR D-Dimer Sodium Potassium Chloride Carbon Dioxide BUN Creatinine Estimated GFR BUN/Creatinine Ratio Glucose Hemoglobin A1c 10.9 H Lactate 1.4 Calcium Total Bilirubin AST ALT Alkaline Phosphatase Lactate Dehydrogenase Total Creatine Kinase Troponin I C-Reactive Protein Total Protein Albumin Globulin Albumin/Globulin Ratio Influenza A (RT-PCR) Flu a negative Influenza B (RT-PCR) Flu b negative 03/02/21 03/03/21 03/03/21 14:03 13:00 13:00 WBC 3.8 L RBC 4.96 Hgb 14.4 Hct 42.7 MCV 86.1 MCH 29.1 MCHC 33.8 RDW 12.7 Plt Count 126 L Neut % (Auto) 59.9 Lymph % (Auto) 26.4 [place] % (Auto) 10.8 Eos % (Auto) 0.1 L Baso % (Auto) 2.8 H Neut # (Auto) 2300 Lymph # (Auto) 1000 L [place] # (Auto) 400 Eos # (Auto) 0 Baso # (Auto) 100 PT 12.8 H INR 1.1 D-Dimer 265 H Sodium Potassium Chloride Carbon Dioxide BUN Creatinine Estimated GFR BUN/Creatinine Ratio Glucose Hemoglobin A1c Lactate Calcium Total Bilirubin AST ALT Alkaline Phosphatase Lactate Dehydrogenase Total Creatine Kinase Troponin I < 0.012 C-Reactive Protein Total Protein Albumin Globulin Albumin/Globulin Ratio Influenza A (RT-PCR) Influenza B (RT-PCR) 03/03/21 13:00 WBC RBC Hgb Hct MCV MCH MCHC RDW Plt Count Neut % (Auto) Lymph % (Auto) [place] % (Auto) Eos % (Auto) Baso % (Auto) Neut # (Auto) Lymph # (Auto) [place] # (Auto) Eos # (Auto) Baso # (Auto) PT INR D-Dimer Sodium 132 L Potassium 4.6 Chloride 99 Carbon Dioxide 26 BUN 16 Creatinine 1.04 Estimated GFR > 60.0 BUN/Creatinine Ratio 15.4 Glucose 192 H D Hemoglobin A1c Lactate Calcium 8.1 L Total Bilirubin 0.6 AST 158 H ALT 195 H Alkaline Phosphatase 55 Lactate Dehydrogenase 1093 H Total Creatine Kinase 1595 H D Troponin I C-Reactive Protein 2.5 H Total Protein 7.4 Albumin 3.9 Globulin 3.5 Albumin/Globulin Ratio 1.1 Influenza A (RT-PCR) Influenza B (RT-PCR) REPLACED BY [facility] Medical History (Updated 03/02/21 @ 19:28 by Alexandra Melendez RN) High cholesterol Hypertension Syncope Surgical History (Updated 03/02/21 @ 19:29 by Alexandra Melendez RN) H/O left inguinal hernia repair Social History household members: spouse Smoking Status: Never smoker Assessment & Plan Assessment & Plan narrative: 1. Syncope -this was situational occurring in the shower and preceded by dizziness/lightheadedness -vitals notable for mild hypertension and sinus tachycardia -at risk for acute PE due to COVID but he has normal D-dimer and absence of unilateral extremity swelling, with better alternative diagnosis -telemetry monitoring -EKG showed NSR, early repolarization -LR x1 L given 2. COVID-19 pneumonia with acute hypoxic respiratory failure -presenting with symptoms of cough and fevers x 1 week -chest x-ray with minimal left lower lobe infiltrate -initial O2 sat 88-89% on room air, JEZ index 4.4 at 2 hours low risk of requiring high-flow -O2 nasal cannula to maintain sat greater than 88% -remdesivir 200 mg IV x1 then 100 mg IV q.d. x up to 4 days -have held off dexamethasone as he is not very symptomatic, not tachypneic and breathing not labored -normal D-dimer, start standard dose enoxaparin for DVT prophylaxis -negative influenza PCR -CRP less than 3, low D-dimer, negative troponin, elevated LDH and CK consistent with COVID -consider discharge tomorrow on home O2 if stable but still requiring suppleme ntal O2 3. Type 2 diabetes, new diagnosis -admitted glucose 337 -A1c 10.9 -start Lantus 20 units HS and medium dose insulin sliding scale -start metformin 500 mg b.i.d. -improving glucose control on Lantus and metformin 4.? Hypertension, chronic untreated -started losartan 50 mg qd -improving BP control on losartan 5. Obesity -brief counseling provided as relates to comorbidities Code status: Full code DVT prophylaxis: Lovenox standard dose Admission status: Changed to inpatient on 03/03 Time Spent With Patient Critical Care time: I spent a total of [] minutes of critical care time on this patient's care today; this time is exclusive of procedural time.
[2021-03-03] MEDS: REMDESIVIR 100 MG in SODIUM CHLORIDE 0.9% 230 ML 250 ML IV (15:12)
[2021-03-03] MEDS: INSULIN GLARGINE 100 UNIT/ML 3ML PEN 20 UNIT SUBCUT (22:20)
[2021-03-04 01:00] VITALS: BP 135/78; PULSE 89; RESP 20; TEMP 36.8; O2SAT 89
[2021-03-04 07:34] VITALS: O2SAT 90
[2021-03-04 08:00] VITALS: BP 135/82; PULSE 103; RESP 19; TEMP 36.4; O2SAT 92
[2021-03-04] MEDS: INSULIN LISPRO 100 UNIT/ML 3ML VIAL SUBCUT ×2 (09:14→13:30)
[2021-03-04 09:19] VITALS: BP 135/78; PULSE 89
[2021-03-04] MEDS: ENOXAPARIN 40 MG/0.4 ML SYRINGE SUBCUT (09:19)
[2021-03-04] MEDS: LOSARTAN 50 MG TABLET PO (09:19)
[2021-03-04] MEDS: METFORMIN HCL 500 MG TABLET PO (09:20)
[2021-03-04] MEDS: SODIUM CHLORIDE 0.9% FLUSH 10 ML IV (09:20)
[2021-03-04 12:00] VITALS: BP 127/78; PULSE 103; RESP 19; TEMP 37.1; O2SAT 92
--- NOTE | 2021-03-04 13:46 | P.DS_ITS ---
History of Present Illness History of Present Illness Chief complaint: passed out in shower this morning Narrative: Per Dr. Ascencio: Patient is 55-year-old male with obesity, hypertension not currently on medicati on, presented after passing out in the shower this morning.? Patient states he has been experiencing sinus infection symptoms for the past week.? Specifically he has been feverish, sinus pressure, has been mildly out of breath and has had a mild cough.? Patient states his fever finally broke 3 nights ago and he was starting to feel better.? Denies nausea or vomiting.? This morning he started to feel acutely dizzy while in the shower and subsequently passed out and fell to the shower floor.? He got a superficial abrasion on his right leg.? Denies chest pain or palpitations.? On ED eval he was COVID positive.? Additionally he has been moderately hypertensive and tachycardic with respiratory rate in low 20s.? He has been mildly hypoxic with O2 sats dropping to 88-89% on room air.? Blood work showed normal WBC, mild elevated LFTs, glucose of 337, normal troponin and D-dimer, elevated CK 1100, creatinine 1.05.? Lactate was 2.9 initially and 1.4 on repeat.? Chest x-ray showed early infiltrate in left lower lobe.? Patient denies prior history of diabetes.? Patient is not previously vaccinated for COVID. Discharge Providers Provider Date of admission: 03/03/21 09:21 Discharge Date: 03/04/21 Primary care physician: Sharan Willis DO Consults: 03/04/21 10:57 Consult to Respiratory Therapy Evaluate & Treat Comment: eval for home o2 Physician Instructions: Evaluate and treat Discharge provider: Baljeet Montano MD Summary Hospital Course Discharge Diagnosis: 1. Syncope 2. Acute hypoxemic respiratory failure secondary to COVID pneumonia 3. Type 2 Diabetes 4. Hypertension 5. Obesity Hospital Course: Mr. Sloan was admitted after a syncopal episode. He was found to have COVID pneumonia with hypoxemia. He was treated with remdesivir. He received IV fluids. He felt much improved. He continued to have mild hypoxemia and was needing oxygen. On day of discharge he felt well enough to go home and he will be discharged on oxygen at rest and during activity. He also was found to have elevated blood sugar and blood pressure. A1c was 10.9, he was started on metformin. He was also started on losartan. He should follow closely with his PCP to determine if he needs additional medication adjustment. He is recommended to get his COVID vaccine once he feels improved. He is recommended to isolate for another week. Exam Vital Signs (past 8 hours): - 03/04/21 07:34 03/04/21 08:00 03/04/21 09:19 Temperature 97.6 F Pulse Rate 103 H 89 Respiratory Rate 19 Blood Pressure 135/82 135/78 Pulse Oximetry 90 L 92 03/04/21 12:00 Temperature 98.7 F Pulse Rate 103 H Respiratory Rate 19 Blood Pressure 127/78 Pulse Oximetry 92 Oxygen Delivery Method Nasal Cannula Oxygen Flow Rate 2 Narrative Exam Narrative: General:? Alert and cooperative male without labored breathing Lungs: Clear Heart:? Regular with mild tachycardia Extremities:? No edema Neurological: Normal affect and orientation Objective Labs Result Diagrams: 03/03/21 13:00 03/03/21 13:00 [facility] Medical History (Updated 03/02/21 @ 19:28 by Alexandra Melendez RN) High cholesterol Hypertension Syncope Surgical History (Updated 03/02/21 @ 19:29 by Alexandra Melendez RN) H/O left inguinal hernia repair Social History household members: spouse Smoking Status: Never smoker Discharge Plan Discharge Plan Provider Discharge Comment: Mr. Sloan came in to the hospital after passing out. He was found to have COVID pneumonia and was short of breath. He also had high blood sugar, consistent with diabetes, and high blood pressure. He is given prescriptions for this and should follow up soon with his PCP. On day of discharge he was feeling better, but still coughing and slightly short of breath. He was discharged home with oxygen. He is recommended to get the COVID vaccine once he is feeling better, and he is recommended to isolate from others for another 7 days. Discharge orders & Medications Discharge Orders: Discharge (Order); Ordered 03/04/21 Ordered By: Baljeet Montano Prescriptions: New losartan 50 mg Tablet 50 mg PO DAILY Qty: 30 0RF metformin 500 mg Tablet 500 mg PO 0800,1700 Qty: 60 0RF Follow up/Referrals: Sharan Willis DO [Primary Care Provider] - Diet/Activity/Treatments Diet: Carb-consistent/Diabetic Discharge Data Primary Care Provider: Sharan Willis
--- NOTE | 2021-03-04 16:32 | PC.NURSE ---
Discharge Note Patient A7O, VSS, RA, no complaints of pain/discomfort. Discharge information reviewed with patient, all questions/concerns addressed. All belongings packed and given to patient along with discharge packet.Prescriptions included in packet. Patient taken down via wheelchair to POV on home O2.
== END 2021-03-04 16:30 | disposition home or self-care (01) | DRG 177 ==
LOC: ED 14:33 → AC 03-03 09:25
PROVIDERS: Admitting Provider Internal Medicine; Emergency Provider Emergency Medicine; PCP Family Medicine; Referring Provider Emergency Medicine; Visit Provider Internal Medicine
DX: U07.1 COVID-19 (principal); J12.82 Pneumonia due to coronavirus disease 2019; J96.01 Acute respiratory failure with hypoxia; I10 Essential (primary) hypertension; E66.9 Obesity, unspecified; E11.65 Type 2 diabetes mellitus with hyperglycemia; R55 Syncope and collapse; Z68.34 Body mass index [BMI] 34.0-34.9, adult
CPT/HCPCS: 36415; 70450; 71045; 73590; 80053; 82550; 82553; 82962; 83036; 83605; 83615; 83690; 83735; 83880; 84484; 85025; 85379; 85610; 85730; 86140; 87040; 87502; 87635; 90471; 93005; 94618; 94762; 96365; 96375; 96376; 99285; C9803; G0378; 90715; J1650; J1815; J2405

== ENCOUNTER 2021-03-08 00:24 | Inpatient (IN) | payer MEDICAID, SELFPAY ==
[2021-03-02 16:22] VITALS: BMI 34.8
[2021-03-08] VITALS (54 sets, daily range): BP systolic 116–157; BP diastolic 57–97; PULSE 77–129; RESP 13–31; TEMP 36.5–37.3; O2SAT 85–99; BMI 36.2; BMI 35.6
--- NOTE | 2021-03-08 00:42 | ED.SOB ---
HPI - SOB/Dyspnea General Chief Complaint: Shortness of Breath/Dyspnea Stated Complaint: covid+/hard time breathing Time Seen by Provider: 03/08/21 00:28 History of Present Illness HPI Narrative: 55M nonsmoker with HTN and newly discovered DM returns with worsening SOB. He was admitted on 03/02 and D/Cd on 03/04 presents with worsening SOB and hypoxemia. He was admitted with COVID pneumonia and received remdesivir and Decadron, he was doing relatively well and was discharged home after being set up with home oxygen at a few L. Over the course of today he became increasingly short of breath and when noted pulse ox in the low 80s she liked to send him back. He has had no nausea, vomiting or diarrhea. He was not vaccinated. Related Data Previous Rx's Medication Instructions Recorded losartan 50 mg tablet 50 mg PO DAILY #30 tab 03/04/21 metformin 500 mg tablet 500 mg PO 0800,1700 #60 tab 03/04/21 Allergies Allergy/AdvReac Type Severity Reaction Status Date / Time No Known Drug Allergies Allergy Verified 03/02/21 10:27 Review of Systems Review of Systems Narrative: GENERAL: Denies chills, fatigue, malaise, fever, sweats. HEENT: Denies sinus pain, ear pain, sore throat, difficulty swallowing, dizziness. RESPIRATORY: See HPI CARDIOVASCULAR: Denies chest pain, palpitations, orthopnea, edema, GASTROINTESTINAL: Denies nausea, vomiting, abdominal pain, diarrhea, constipation, melena. : Denies dysuria, frequency, incontinence, hematuria, urinary retention. MUSCULOSKELETAL: denies weakness, joint pain, or bony pain SKIN: Denies rash, skin lesions, or other NEUROLOGIC: Denies weakness, headache, numbness, change in speech, confusion, seizures, incoordination. PSYCHIATRIC: No concerning psychosocial issues. 12 point review of systems is negative except for those stated above Patient History Medical History High cholesterol Hypertension Syncope Surgical History H/O left inguinal hernia repair Social History household members: spouse Smoking Status: Never smoker Smoking Status: Never smoker alcohol intake frequency: holidays/special occasions only Substance Use Type: does not use Exam Narrative Exam Narrative: GENERAL: [55 year old patient appears stated age. Well-developed patient, in mild distress. HEAD: Atraumatic. Normocephalic. EYES: Pupils equal round and reactive. Extraocular motions intact. No scleral icterus. No injection or drainage. ENT: Nose without bleeding, purulent drainage. Throat without erythema, tonsillar hypertrophy or exudate. Airway patent. NECK: Trachea midline. Non tender CARDIOVASCULAR: Regular rate and rhythm without murmurs, gallops, or rubs. RESPIRATORY: Decreased breath sounds bilaterally with crackles GASTROINTESTINAL: Abdomen soft, non-tender, nondistended. EXTREMITIES: No edema or joint tenderness. BACK: Nontender without deformity or crepitance. No flank tenderness. NEURO: AOx3. SKIN: No rash or erythema of visible areas Initial Vital Signs Initial Vital Signs: Vital Signs Temperature 99.2 F 03/08/21 00:45 Pulse Rate 117 H 03/08/21 00:45 Respiratory Rate 26 H 03/08/21 00:45 Blood Pressure 134/62 03/08/21 00:45 Pulse Oximetry 90 L 03/08/21 00:45 Course Orders Ordered: ED Orders 03/08/21 00:43 XR chest 1V Stat High flow/High humidity nasal STAT 03/08/21 00:50 C-Reactive Protein Quant Stat Complete Blood Count AUTO DIFF Stat Comprehensive Metabolic Panel Stat D Dimer Stat Ferritin Stat Lactate (Lactic Acid) Stat Lactate Dehydrogenase Stat NT-proBNP (BNP-Adult 18+) Stat Procalcitonin Stat Troponin & CK Cardiac Panel Stat 03/08/21 00:51 Arterial Blood Gas Stat 03/08/21 01:00 Blood Culture Stat Discontinued Medications Dexamethasone (Dexamethasone 10 Mg/Ml Vial) 6 mg IV NOW ONE Stop: 03/08/21 00:44 Last Admin: 03/08/21 00:47 Dose: 6 mg Documented by: ELIZABETH Remdesivir 200 mg/ Sodium (Chloride) 250 mls @ 250 mls/hr IV NOW ONE Stop: 03/08/21 01:59 Last Admin: 03/08/21 01:27 Dose: 250 mls/hr Documented by: SHAE Vital Signs Vital signs: Vital Signs - 8 hr 03/08/21 00:45 03/08/21 01:03 Temperature 99.2 F Pulse Rate 117 H 112 H Respiratory Rate 26 H 26 H Blood Pressure 134/62 116/58 L Pulse Oximetry 90 L 94 MDM - SOB/Dyspnea Lab Data Result diagrams: 03/08/21 00:50 03/08/21 00:50 Labs: Lab Results 03/08/21 03/08/21 03/08/21 Range/Units 00:50 00:50 00:50 WBC 7.7 (4.5-11.0) X10^3/uL RBC 4.78 (4.5-5.9) X10^6/uL Hgb 14.0 (13.5-17.5) g/dL Hct 41.2 (41-53) % MCV 86.1 (80-100) fL MCH 29.3 (26-34) PG MCHC 34.1 (30-36) % RDW 12.8 (11.6-14.8) % Plt Count 313 (150-400) X10^3/uL Neut % (Auto) 74.4 (50-75) % Lymph % (Auto) 10.5 L (25-40) % Smith % (Auto) 14.8 H (3-14) % Eos % (Auto) 0.1 L (2-4) % Baso % (Auto) 0.2 (0-2) % Neut # (Auto) 5700 (5853-4317) /uL Lymph # (Auto) 800 L (1450-5539) /uL Smith # (Auto) 1100 H (0-900) /uL Eos # (Auto) 0 (0-450) /uL Baso # (Auto) 0 (0-100) /uL D-Dimer 413 H (<230) ng/mL ABG pH (7.35-7.45) ABG pCO2 (35-45) mmHg ABG pO2 (80-100) mmHg ABG HCO3 (22-26) mmol/L ABG Total CO2 (21-31) mmol/L ABG O2 Saturation (95-100) % ABG Base Excess (-2-2) mmol/L FiO2 Sodium 134 L (137-145) mmol/L Potassium 4.1 (3.4-5.1) mmol/L Chloride 100 (98-107) mmol/L Carbon Dioxide 25 (22-32) mmol/L BUN 13 (9-20) mg/dL Creatinine 0.76 (0.66-1.25) mg/dL Estimated GFR > 60.0 (>60) mL/min BUN/Creatinine Ratio 17.1 (6-22) Glucose 168 H (70-100) mg/dL Lactate (0.7-2.1) mmol/L Calcium 8.7 (8.4-10.2) mg/dL Ferritin 774 H (18-464) ng/mL Total Bilirubin 1.0 (0.2-1.3) mg/dL AST 113 H (17-59) IU/L ALT 141 H (<50) IU/L Alkaline Phosphatase 69 (38-126) U/L Lactate Dehydrogenase 1062 H (313-618) U/L Total Creatine Kinase 832 H D (55-170) U/L CK-MB (CK-2) 3.48 H (<2.37) ng/mL CK-MB (CK-2) Rel Index 0.4 L (1.5-5.0) % Troponin I < 0.012 (0.01-0.034) ng/mL C-Reactive Protein 12.8 H (<1.0) mg/dL NT-Pro-B Natriuret Pep 25 (<125) pg/mL Total Protein 8.0 (6.3-8.2) g/dL Albumin 4.0 (3.5-5.0) g/dL Globulin 4.0 (1.7-4.1) g/dL Albumin/Globulin Ratio 1.0 (1.0-2.8) Procalcitonin 0.13 (<0.5) ng/mL 03/08/21 03/08/21 Range/Units 00:50 00:51 WBC (4.5-11.0) X10^3/uL RBC (4.5-5.9) X10^6/uL Hgb (13.5-17.5) g/dL Hct (41-53) % MCV (80-100) fL MCH (26-34) PG MCHC (30-36) % RDW (11.6-14.8) % Plt Count (150-400) X10^3/uL Neut % (Auto) (50-75) % Lymph % (Auto) (25-40) % Smith % (Auto) (3-14) % Eos % (Auto) (2-4) % Baso % (Auto) (0-2) % Neut # (Auto) (6005-8370) /uL Lymph # (Auto) (5497-2153) /uL Smith # (Auto) (0-900) /uL Eos # (Auto) (0-450) /uL Baso # (Auto) (0-100) /uL D-Dimer (<230) ng/mL ABG pH 7.47 H (7.35-7.45) ABG pCO2 33.1 L (35-45) mmHg ABG pO2 72 L (80-100) mmHg ABG HCO3 24 (22-26) mmol/L ABG Total CO2 25 (21-31) mmol/L ABG O2 Saturation 95 (95-100) % ABG Base Excess 0.0 (-2-2) mmol/L FiO2 100 Sodium (137-145) mmol/L Potassium (3.4-5.1) mmol/L Chloride (98-107) mmol/L Carbon Dioxide (22-32) mmol/L BUN (9-20) mg/dL Creatinine (0.66-1.25) mg/dL Estimated GFR (>60) mL/min BUN/Creatinine Ratio (6-22) Glucose (70-100) mg/dL Lactate 1.1 (0.7-2.1) mmol/L Calcium (8.4-10.2) mg/dL Ferritin (18-464) ng/mL Total Bilirubin (0.2-1.3) mg/dL AST (17-59) IU/L ALT (<50) IU/L Alkaline Phosphatase (38-126) U/L Lactate Dehydrogenase (313-618) U/L Total Creatine Kinase (55-170) U/L CK-MB (CK-2) (<2.37) ng/mL CK-MB (CK-2) Rel Index (1.5-5.0) % Troponin I (0.01-0.034) ng/mL C-Reactive Protein (<1.0) mg/dL NT-Pro-B Natriuret Pep (<125) pg/mL Total Protein (6.3-8.2) g/dL Albumin (3.5-5.0) g/dL Globulin (1.7-4.1) g/dL Albumin/Globulin Ratio (1.0-2.8) Procalcitonin (<0.5) ng/mL Imaging Data Chest x-ray: Radiologist's Impression: Chart Viewer Diagnostics Subcategory All Activity ??:?? All Time ??:?? All Subcategories Filter Laboratory Imaging Microbiology Pathology Blood Bank Tests Cardiovascular Other Specialty DATE TYPE STATUS REF RANGE/AUTHOR Hx Today 00:43 Chest X-Ray Signed Lilliana Kevin 03/03/21 09:21 Telemetry Strips ? 03/02/21 10:48 Tibia/Fibula X-Ray Signed Ravinder Mason 03/02/21 10:[address] Signed Ravinder Mason 03/02/21 10:27 Chest X-Ray Signed ZbigniewauraElíasRavinder Glenroy Sloan ED 55, M?1965 MRN#? [id number] REG ER,?Main ED??R06?? 180.34cm 117.934kg BMI: 36.3kg/m? Shortness of Breath/Dyspnea Acc#? [id number] Resus Status Not Ordered Hx Avail Special Indicators No Data to Display Home Meds Not Confirmed Prescription Monitoring Program MEDICATIONS (INSTRUCTIONS) LAST TAKEN Active ??losartan ??50 mgPODAILY#30 tab ??metformin ??500 frIU4183,1700#60 tab Allergies No Known Drug Allergies Problems ? ONSET Syncope Pneumonia due to COVID-19 virus Vital Signs Today 01:03 BP 116/58?L Pulse 112?H Resp 26?H O2 Sat 94? Diagnostics Reports Glenroy Sloan??55??M??1965 ? Allergy/Adv: No Known Drug Allergies (More??) Close Chest X-Ray (Signed) Lilliana Kevin - 03/08/21 Telemetry Strips 03/03/21 Tibia/Fibula X-Ray (Signed) Ravinder aMson - 03/02/[address] (Signed) Ravinder Mason - 03/02/21 Chest X-Ray (Signed) Ravinder Mason - 03/02/21 Launch?[address] [address] XRay Report Signed Patient: Glenroy Sloan MR#: [id number] : 1965 Acct:[id number] Age/Sex: 55 / M Date of Service: 03/08/21 Loc: ED Accession Number: [id number] ?? Procedure: XR chest 1V Ordering Provider: Cruzito Gonzalez D.O. PROCEDURE:? XR CHEST 1V ? INDICATIONS:? flu-like symptoms ? TECHNIQUE:? One view of the chest was acquired.? ? COMPARISON:? [facility], CR, XR CHEST 1V, 03/02/2021, 10:38. ? FINDINGS:? ? Surgical changes and devices:? None.? ? Lungs and pleura:? Bilateral patchy and consolidative opacities present most severe in the base. ? Mediastinum:? Mediastinal contours appear normal.? Heart size is normal.? ? Bones and chest wall:? No suspicious bony lesions.? Overlying soft tissues appear unremarkable.? ? IMPRESSION:? Bilateral opacities most suggestive of pneumonia. ? ? Dictated by: Lilliana Kevin M.D. on 03/08/2021 at 1:28 ? ? Approved by: Lilliana Kevin M.D. on 03/08/2021 at 1:28 ? MDM Narrative Medical decision making narrative: Patient with increasing oxygen requirements over the course of the day including during his visit in the department. Initially he is on a nasal cannula and then advance is to a non-rebreather and finally said he did high flow which stabilizes him. Patient will require hospitalization for increased oxygen requirements and ongoing evaluation and stabilization of his illness. Patient understands and agrees with the plan. I did discuss the use of remdesivir with him and he agrees. Discharge Plan Departure Patient Disposition: Admitted As Inpatient Clinical Impression: Pneumonia due to COVID-19 virus, Acute hypoxemic respiratory failure
--- NOTE | 2021-03-08 00:43 | DI.RAD.S_ITS ---
PROCEDURE: XR CHEST 1V INDICATIONS: flu-like symptoms TECHNIQUE: One view of the chest was acquired. COMPARISON: [facility], CR, XR CHEST 1V, 03/02/2021, 10:38. FINDINGS: Surgical changes and devices: None. Lungs and pleura: Bilateral patchy and consolidative opacities present most severe in the base. Mediastinum: Mediastinal contours appear normal. Heart size is normal. Bones and chest wall: No suspicious bony lesions. Overlying soft tissues appear unremarkable. IMPRESSION: Bilateral opacities most suggestive of pneumonia. Dictated by: Lilliana Kevin M.D. on 03/08/2021 at 1:28 Approved by: Lilliana Kevin M.D. on 03/08/2021 at 1:28
[2021-03-08] MEDS: DEXAMETHASONE 10 MG/ML VIAL 6 MG IV ×2 (00:47→20:58)
[2021-03-08 01:08] LABS: D Dimer 413 ng/mL (<230)
[2021-03-08 01:10] LABS: Lactate (Lactic Acid) 1.1 mmol/L (0.7-2.1)
[2021-03-08 01:12] LABS: Alanine Aminotransferase 141 IU/L (<50); Alkaline Phosphatase 69 U/L (38-126); Aspartate Aminotransferase 113 IU/L (17-59); BUN Creatinine Ratio 17.1 (6-22); Blood Urea Nitrogen 13 mg/dL (9-20); Calcium 8.7 mg/dL (8.4-10.2); Carbon Dioxide 25 mmol/L (22-32); Chloride 100 mmol/L (98-107); Creatine Kinase 832 U/L (55-170); Estimated Glomerular Filt Rate > 60.0 mL/min (>60); Glucose 168 mg/dL (70-100); HEMOLYSIS < 15 (0-50); Lactate Dehydrogenase 1062 U/L (313-618); Potassium 4.1 mmol/L (3.4-5.1); Sodium 134 mmol/L (137-145)
[2021-03-08 01:20] LABS: Add Manual Diff / Slide Review NO; Basophils Absolute Auto 0 /uL (0-100); Basophils Percent Auto 0.2 % (0-2); Eosinophils Absolute Auto 0 /uL (0-450); Eosinophils Percent Auto 0.1 % (2-4); Hematocrit 41.2 % (41-53); Lymphocytes Absolute Auto 800 /uL (1100-4500); Lymphocytes Percent Auto 10.5 % (25-40); Mean Corpuscular HGB Conc 34.1 % (30-36); Mean Corpuscular Hemoglobin 29.3 PG (26-34); Mean Corpuscular Volume 86.1 fL (80-100); Monocytes Absolute Auto 1100 /uL (0-900); Monocytes Percent Auto 14.8 % (3-14); Neutrophils Absolute Auto 5700 /uL (1500-7000); Neutrophils Percent Auto 74.4 % (50-75); Platelet Count 313 X10^3/uL (150-400); Red Blood Cell Count 4.78 X10^6/uL (4.5-5.9); Red Cell Distribution Width 12.8 % (11.6-14.8); White Blood Cell Count 7.7 X10^3/uL (4.5-11.0)
[2021-03-08 01:22] LABS: NT-proBNP (BNP-Adult 18+) 25 pg/mL (<125); Troponin I < 0.012 ng/mL (0.01-0.034)
[2021-03-08 01:25] LABS: C-Reactive Protein Quant 12.8 mg/dL (<1.0); CKMB % Relative Index 0.4 % (1.5-5.0); Creatine Kinase MB 3.48 ng/mL (<2.37)
[2021-03-08 01:26] LABS: Procalcitonin 0.13 ng/mL (<0.5)
[2021-03-08] MEDS: REMDESIVIR 200 MG in SODIUM CHLORIDE 0.9% 210 ML 250 ML IV (01:27)
[2021-03-08 01:30] LABS: Fractionated Inspired Oxygen 100; HCO3 ABG 24 mmol/L (22-26); Oxygen Saturation ABG 95 % (95-100); PCO2 ABG 33.1 mmHg (35-45); PO2 ABG 72 mmHg (80-100); TCO2 ABG 25 mmol/L (21-31); pH ABG 7.47 (7.35-7.45)
[2021-03-08 01:44] LABS: Ferritin 774 ng/mL (18-464)
--- NOTE | 2021-03-08 02:36 | PC.NURSE ---
Pt spo2 dropped to 81%. Checked pt. Pt's hose to heated high flow broke. new one placed oxygen sats improved.
--- NOTE | 2021-03-08 02:59 | P.HP_ITS ---
History of Present Illness History of Present Illness Chief complaint: covid+/hard time breathing Narrative: Glenroy Sloan is 55 male nonsmoker with HTN and newly diagnosed DM returns with worsening shortness of breath. He was admitted on 03/02 and discharged 2 days ago on 03/04 now presents with worsening SOB and hypoxemia. He was admitted with COVID pneumonia and received remdesivir and Decadron, he was doing relatively well. On 03/04, he was discharged home after being set up with home oxygen concentrator.? Upon discharge, he states he was feeling better until tonight when he started to cough and he became increasingly short of breath and when noted pulse ox in the low 80s she recommended he return to the ED.? He has had no fever, nausea, vomiting or diarrhea.? He was not vaccinated. When the patient was discharged she was given prescriptions and diabetic Education. Since his discharge he was not able to obtain the supplies to monitor his blood sugars. Chest x-ray indicated ?Bilateral patchy and consolidative opacities present most severe in the base. On admission the patient's temperature is 99?, blood pressure 157/85, heart rate 111, respiratory rate 26, his oxygen a at 96% on 60 L with an FiO2 of 71, he weighs 116 kg with a BMI of 34.8. His CBC is es sentially unremarkable with the exception of lymphopenia, D-dimer was 413 within normal limits for age, his ABG pH was 7.47, pCO2 33.1, PO2 72, bicarb 24, CO2 25, ABG O2 saturation 95%. Sodium was 134, glucose 168, lactate normal, ferritin 774, AST 113, ALT 141, lactate dehydrogenase was 1062, total CK was 832, CK-MB is 3.48, C-reactive protein is 12.8, proBNP within normal limits, and procalcitonin is 0.13. COVID-19 PCR done on March 02 was positive. Patient History Medical History (Updated 03/08/21 @ 03:53 by Jaciel Martins MD) Essential hypertension High cholesterol Hypertension Obesity (BMI 30-39.9) Syncope Surgical History H/O left inguinal hernia repair Family & Social History Family History Mother CAD (coronary artery disease) Diabetes mellitus Father CVA (cerebral vascular accident) Social History: household members spouse Safety & Behavioral: Feels Safe in Current Yes Environment Been Physically Hurt or No Threatened By a Person Tobacco & Substance use: Smoking Status Never smoker alcohol intake frequency holiday/special occasion Substance Use Type Denies Meds Home Medications and Allergies Home Medications Medication Instructions Recorded Confirmed Type losartan 50 mg tablet 50 mg PO DAILY #30 tab 03/04/21 Rx metformin 500 mg tablet 500 mg PO 0800,1700 #60 tab 03/04/21 Rx Allergies Allergy/AdvReac Type Severity Reaction Status Date / Time No Known Drug Allergies Allergy Verified 03/02/21 10:27 Review of Systems Review of Systems ROS: Yes All systems reviewed with the patient and are negative except as otherwise documented Exam Vital Signs (past 8 hours): - 03/08/21 00:45 03/08/21 01:03 Temperature 99.2 F Pulse Rate 117 H 112 H Respiratory Rate 26 H 26 H Blood Pressure 134/62 116/58 L Pulse Oximetry 90 L 94 Oxygen Delivery Method Nasal Cannula Oxygen Flow Rate 6 Narrative Exam Narrative: Gen: Alert, oriented, truncally obese 55 y.o. male, on heated high flow O2 HEENT: normocephalic, atraumatic, conjunctiva clear, sclera non-icteric, oral mucosa dry Neck: supple, full ROM, no JVD, trachea is midline Resp: Hypoxic with bilateral rales worse in bases CV: Tachycardic, no murmur or rubs Abd: obese, soft, non-tender, normoactive BTs Skin: no lesions or rashes, dry and intact Neuro: Alert and oriented X 4 w/no focal deficits. Speech clear and coherent. Extremities: moves all 4 extremities, is ambulatory, negative Graciela?s sign Psyche: normal mood and affect. Objective Labs Result Diagrams: 03/08/21 00:50 03/08/21 00:50 Labs: Laboratory Results - last 24 hr 03/08/21 03/08/21 03/08/21 00:50 00:50 00:50 WBC 7.7 RBC 4.78 Hgb 14.0 Hct 41.2 MCV 86.1 MCH 29.3 MCHC 34.1 RDW 12.8 Plt Count 313 Neut % (Auto) 74.4 Lymph % (Auto) 10.5 L Gage % (Auto) 14.8 H Eos % (Auto) 0.1 L Baso % (Auto) 0.2 Neut # (Auto) 5700 Lymph # (Auto) 800 L Gage # (Auto) 1100 H Eos # (Auto) 0 Baso # (Auto) 0 D-Dimer 413 H ABG pH ABG pCO2 ABG pO2 ABG HCO3 ABG Total CO2 ABG O2 Saturation ABG Base Excess FiO2 Sodium 134 L Potassium 4.1 Chloride 100 Carbon Dioxide 25 BUN 13 Creatinine 0.76 Estimated GFR > 60.0 BUN/Creatinine Ratio 17.1 Glucose 168 H Lactate Calcium 8.7 Ferritin 774 H Total Bilirubin 1.0 AST 113 H ALT 141 H Alkaline Phosphatase 69 Lactate Dehydrogenase 1062 H Total Creatine Kinase 832 H D CK-MB (CK-2) 3.48 H CK-MB (CK-2) Rel Index 0.4 L Troponin I < 0.012 C-Reactive Protein 12.8 H NT-Pro-B Natriuret Pep 25 Total Protein 8.0 Albumin 4.0 Globulin 4.0 Albumin/Globulin Ratio 1.0 Procalcitonin 0.13 03/08/21 03/08/21 00:50 00:51 WBC RBC Hgb Hct MCV MCH MCHC RDW Plt Count Neut % (Auto) Lymph % (Auto) Gage % (Auto) Eos % (Auto) Baso % (Auto) Neut # (Auto) Lymph # (Auto) Gage # (Auto) Eos # (Auto) Baso # (Auto) D-Dimer ABG pH 7.47 H ABG pCO2 33.1 L ABG pO2 72 L ABG HCO3 24 ABG Total CO2 25 ABG O2 Saturation 95 ABG Base Excess 0.0 FiO2 100 Sodium Potassium Chloride Carbon Dioxide BUN Creatinine Estimated GFR BUN/Creatinine Ratio Glucose Lactate 1.1 Calcium Ferritin Total Bilirubin AST ALT Alkaline Phosphatase Lactate Dehydrogenase Total Creatine Kinase CK-MB (CK-2) CK-MB (CK-2) Rel Index Troponin I C-Reactive Protein NT-Pro-B Natriuret Pep Total Protein Albumin Globulin Albumin/Globulin Ratio Procalcitonin Assessment & Plan Assessment & Plan narrative: Glenroy Sloan returns and is admitted to the ICU for worsening COVID-19 hypoxia and acute respiratory failure. 1. COVID-19 Pneumonia, acute, present on admission * Patient was administered loading dose of IV Remdesevir 200 mg and dexamethasone 6 mg in the ED * Continue IV Remdesevir 100 mg and dexamethasone 6 mg the following day * Patient is initiated on Baricitinib 4 mg po daily due to high risk of accelerating oxygen support requirements. * Heated high flow, FIO2 [] liters/minute, she weighs 99.7 kg the BMI of 35.5. * Patient has not vaccinated. 2. Diabetes type 2 diagnosed on most recent prior admission * His A1c was greater than 10 during his last admission * Metformin is held * Will start glargine 10 units in the am, 5 units at bedtime with a medium dose correctional scale prandial dose * ACHS glucose checks, carb controlled diet 3. Essential hypertension, currently normtensive * Cardiac monitoring and vitals q 4 hours VTE Prophylaxis: Wells risk score 1.5 Enoxaparin 40 mg subQ once daily Bilateral SCDs Patient is admitted to the inpatient ICU service due to the severity of disease, risks of further disease progression and this stay is expected to exceed 2 midnights. FEN: IV fluids: saline lock, diet: carb controlled diet, labs: CBC, C/BMP, liver enzymes, inflammatory markers, [facility] ICU, care and involvement in the patient?s care is appreciated. Dispo: unknown at this time Code status: Full Code as discussed with the patient who identifies his , Shelley as his surrogate and POA. [X] I have utilized all available immediate resources to obtain, update, or review of the patient's current medications COVID-19 COVID-19 status: Positive Result date/Date tested (Pos, Neg/Pending): 03/02/21 Scores Wells' Criteria for PE Clinical signs and symptoms of DVT: No PE is #1 Dx or equally likely: No Heart rate > 100: Yes Immobilization at least 3 days or surg in previous 4 weeks: No History of PE or DVT: No Hemoptysis: No Malignancy w/Treatment within 6 months or palliative: No Wells' PE Score total: 1.5 Quality VTE Deep Vein Thrombosis/Pulmonary Embolism Present on Admission: No MIPS - Admit I confirm the patient?s Advance Care Plan is present, Code status is documented, Surrogate decision maker is in patient?s record [If Yes, STOP here]: No MIPS - DC The patient has current or prior documentation of left ventricular ejection fraction (LVEF) less than 40%, or moderate or severely depressed left ventricular systolic function.: No
--- NOTE | 2021-03-08 03:48 | P.TELICUCN_ITS ---
History of Present Illness Consult details Date Patient Seen: 03/08/21 Chief complaint: covid+/hard time breathing :: This patient was seen via real time interactive two-way audiovisual tel ecommunication. Narrative: 55 y.o. unvaccinated male w/ PMHx of HTN and newly-diagnosed T2DM who has been readmitted with COVID-19 induced acute hypoxic respiratory failure. He was hospitalized and discharged on home O2, remdesivir and dexamethasone. Today, O2 saturations were in the 80s and he felt worse. Currently on 70% HFNC @ 60L. PFSH Medical History Essential hypertension High cholesterol Hypertension Obesity (BMI 30-39.9) Syncope Surgical History H/O left inguinal hernia repair Family History Mother CAD (coronary artery disease) Diabetes mellitus Father CVA (cerebral vascular accident) Social History household members: spouse Smoking Status: Never smoker Current Medications Current Medications Medications: Home Medications losartan 50 mg tablet 50 mg PO DAILY #30 tab 03/04/21 [Rx] metformin 500 mg tablet 500 mg PO 0800,1700 #60 tab 03/04/21 [Rx] Exam Vital Signs (past 8 hours): - 03/08/21 00:39 03/08/21 00:41 03/08/21 00:45 Temperature 99.2 F Pulse Rate 129 H 114 H 117 H Respiratory Rate 26 H Blood Pressure 134/62 134/62 Pulse Oximetry 85 L 89 L 90 L 03/08/21 01:00 03/08/21 01:03 03/08/21 01:30 Temperature Pulse Rate 117 H 112 H 109 H Respiratory Rate 29 H 26 H 26 H Blood Pressure 116/58 L 116/58 L 150/76 H Pulse Oximetry 90 L 94 94 03/08/21 02:00 03/08/21 02:30 03/08/21 03:00 Temperature Pulse Rate 104 H 107 H 101 H Respiratory Rate 23 26 H 22 Blood Pressure 157/81 H 156/76 H 157/97 H Pulse Oximetry 94 93 94 03/08/21 03:39 Temperature 99.0 F Pulse Rate 111 H Respiratory Rate 26 H Blood Pressure 157/85 H Pulse Oximetry 96 Fraction of Inspired Oxygen 71 Oxygen Delivery Method Nasal Cannula,Non -Rebreather Oxygen Flow Rate 60 Const Nutritional Appearance: overweight Resp Effort & Inspection: normal respiratory effort (while lying in right lateral decubitus position) Cardio Rate: tachycardic (in low 100s) Rhythm: regular rhythm Neuro General: patient alert and patient awake Objective Labs Result Diagrams: 03/08/21 00:50 03/08/21 00:50 Labs: Laboratory Results - last 24 hr 03/08/21 03/08/21 03/08/21 00:50 00:50 00:50 WBC 7.7 RBC 4.78 Hgb 14.0 Hct 41.2 MCV 86.1 MCH 29.3 MCHC 34.1 RDW 12.8 Plt Count 313 Neut % (Auto) 74.4 Lymph % (Auto) 10.5 L Rolette % (Auto) 14.8 H Eos % (Auto) 0.1 L Baso % (Auto) 0.2 Neut # (Auto) 5700 Lymph # (Auto) 800 L Rolette # (Auto) 1100 H Eos # (Auto) 0 Baso # (Auto) 0 D-Dimer 413 H ABG pH ABG pCO2 ABG pO2 ABG HCO3 ABG Total CO2 ABG O2 Saturation ABG Base Excess FiO2 Sodium 134 L Potassium 4.1 Chloride 100 Carbon Dioxide 25 BUN 13 Creatinine 0.76 Estimated GFR > 60.0 BUN/Creatinine Ratio 17.1 Glucose 168 H Lactate Calcium 8.7 Ferritin 774 H Total Bilirubin 1.0 AST 113 H ALT 141 H Alkaline Phosphatase 69 Lactate Dehydrogenase 1062 H Total Creatine Kinase 832 H D CK-MB (CK-2) 3.48 H CK-MB (CK-2) Rel Index 0.4 L Troponin I < 0.012 C-Reactive Protein 12.8 H NT-Pro-B Natriuret Pep 25 Total Protein 8.0 Albumin 4.0 Globulin 4.0 Albumin/Globulin Ratio 1.0 Procalcitonin 0.13 03/08/21 03/08/21 00:50 00:51 WBC RBC Hgb Hct MCV MCH MCHC RDW Plt Count Neut % (Auto) Lymph % (Auto) Rolette % (Auto) Eos % (Auto) Baso % (Auto) Neut # (Auto) Lymph # (Auto) Rolette # (Auto) Eos # (Auto) Baso # (Auto) D-Dimer ABG pH 7.47 H ABG pCO2 33.1 L ABG pO2 72 L ABG HCO3 24 ABG Total CO2 25 ABG O2 Saturation 95 ABG Base Excess 0.0 FiO2 100 Sodium Potassium Chloride Carbon Dioxide BUN Creatinine Estimated GFR BUN/Creatinine Ratio Glucose Lactate 1.1 Calcium Ferritin Total Bilirubin AST ALT Alkaline Phosphatase Lactate Dehydrogenase Total Creatine Kinase CK-MB (CK-2) CK-MB (CK-2) Rel Index Troponin I C-Reactive Protein NT-Pro-B Natriuret Pep Total Protein Albumin Globulin Albumin/Globulin Ratio Procalcitonin Assessment & Plan Assessment and plan (1) Acute hypoxemic respiratory failure due to COVID-19: Status: Acute Plan: -Continue HFNC; target O2 sat 90-92% -Continue remdesivir, dexamethasone -Agree with addition of baricitinib -D-dimer level is elevated but not markedly so; OK to use conventional enoxaparin VTE chemoprophylaxis dose of q24H; would increase to q12H if D-dimer rises further -Encourage self-proning (2) Diabetes type 2, uncontrolled: Status: Chronic Plan: -Insulin correction scale Time Spent With Patient Critical Care time: I spent a total of 35 minutes of critical care time on this patient's care today; this time is exclusive of procedural time.
--- NOTE | 2021-03-08 06:05 | PC.NURSE ---
0600- Patient noted to be desaturating. Patient was voiding and once finished it took approximately 15 minutes to regain adequate saturations. Patient is on 60 liters and 70% Fio2. Respirations are 24-30 labored at times. Patient states he does not feel short of breath. Will monitor.
[2021-03-08] MEDS: INSULIN GLARGINE 100 UNIT/ML 3ML PEN 10 UNIT SUBCUT (08:15)
[2021-03-08] MEDS: INSULIN LISPRO 100 UNIT/ML 3ML VIAL SUBCUT ×2 (08:43→17:06)
[2021-03-08] MEDS: BARICITINIB 2 MG TABLET 4 MG PO (08:44)
[2021-03-08] MEDS: ENOXAPARIN 40 MG/0.4 ML SYRINGE SUBCUT (08:44)
--- NOTE | 2021-03-08 09:32 | P.TELICUPN_ITS ---
Subjective Subjective :: This patient was seen via real time interactive two-way audiovisual telecommunication. Admitted overnight for acute hypoxemia respiratory failure secondary to COVID pneumonia. Curently on HFNC 60/70%. Educated about the importance of proning but difficult due to body habitus. On baricitinib, decadron, and remdesivir. Started on lasix 20 mg IV BID. Current Medications Current Medications Medications: Home Medications losartan 50 mg tablet 50 mg PO DAILY #30 tab 03/04/21 [Rx Confirmed 03/08/21] metformin 500 mg tablet 500 mg PO 0800,1700 #60 tab 03/04/21 [Rx Confirmed 03/08/21] Visit Medications (administered) Generic Name Dose Route Start Last Admin Trade Name Freq PRN Reason Stop Dose Admin Enoxaparin Sodium 40 mg 03/08/21 09:00 03/08/21 08:44 Enoxaparin 40 Mg/0.4 Ml Syringe SUBCUT 40 mg DAILY KVNG Administration Insulin Glargine 10 unit 03/08/21 08:00 03/08/21 08:15 Insulin Glargine 100 Unit/Ml 3ml Pen SUBCUT 10 unit 0800 KVNG Administration Insulin Human Lispro 0 unit 03/08/21 07:45 03/08/21 08:43 Insulin Lispro 100 Unit/Ml 3ml Vial SUBCUT 1 unit ACHS KVNG Administration Protocol Objective Ventilator Parameters: Ventilator Settings FiO2 50 Labs Result Diagrams: 03/08/21 00:50 03/08/21 00:50 Labs: Laboratory Results - last 24 hr 03/08/21 03/08/21 03/08/21 00:50 00:50 00:50 WBC 7.7 RBC 4.78 Hgb 14.0 Hct 41.2 MCV 86.1 MCH 29.3 MCHC 34.1 RDW 12.8 Plt Count 313 Neut % (Auto) 74.4 Lymph % (Auto) 10.5 L [place] % (Auto) 14.8 H Eos % (Auto) 0.1 L Baso % (Auto) 0.2 Neut # (Auto) 5700 Lymph # (Auto) 800 L [place] # (Auto) 1100 H Eos # (Auto) 0 Baso # (Auto) 0 D-Dimer 413 H ABG pH ABG pCO2 ABG pO2 ABG HCO3 ABG Total CO2 ABG O2 Saturation ABG Base Excess FiO2 Sodium 134 L Potassium 4.1 Chloride 100 Carbon Dioxide 25 BUN 13 Creatinine 0.76 Estimated GFR > 60.0 BUN/Creatinine Ratio 17.1 Glucose 168 H Lactate Calcium 8.7 Ferritin 774 H Total Bilirubin 1.0 AST 113 H ALT 141 H Alkaline Phosphatase 69 Lactate Dehydrogenase 1062 H Total Creatine Kinase 832 H D CK-MB (CK-2) 3.48 H CK-MB (CK-2) Rel Index 0.4 L Troponin I < 0.012 C-Reactive Protein 12.8 H NT-Pro-B Natriuret Pep 25 Total Protein 8.0 Albumin 4.0 Globulin 4.0 Albumin/Globulin Ratio 1.0 Procalcitonin 0.13 03/08/21 03/08/21 00:50 00:51 WBC RBC Hgb Hct MCV MCH MCHC RDW Plt Count Neut % (Auto) Lymph % (Auto) [place] % (Auto) Eos % (Auto) Baso % (Auto) Neut # (Auto) Lymph # (Auto) [place] # (Auto) Eos # (Auto) Baso # (Auto) D-Dimer ABG pH 7.47 H ABG pCO2 33.1 L ABG pO2 72 L ABG HCO3 24 ABG Total CO2 25 ABG O2 Saturation 95 ABG Base Excess 0.0 FiO2 100 Sodium Potassium Chloride Carbon Dioxide BUN Creatinine Estimated GFR BUN/Creatinine Ratio Glucose Lactate 1.1 Calcium Ferritin Total Bilirubin AST ALT Alkaline Phosphatase Lactate Dehydrogenase Total Creatine Kinase CK-MB (CK-2) CK-MB (CK-2) Rel Index Troponin I C-Reactive Protein NT-Pro-B Natriuret Pep Total Protein Albumin Globulin Albumin/Globulin Ratio Procalcitonin Exam Vital Signs (past 8 hours): - 03/08/21 02:00 03/08/21 02:30 03/08/21 03:00 Temperature Pulse Rate 104 H 107 H 101 H Respiratory Rate 23 26 H 22 Blood Pressure 157/81 H 156/76 H 157/97 H Pulse Oximetry 94 93 94 03/08/21 03:33 03/08/21 03:39 03/08/21 05:37 Temperature 99.0 F Pulse Rate 103 H 111 H 87 Respiratory Rate 23 26 H 21 Blood Pressure 157/85 H 157/85 H 157/85 H Pulse Oximetry 94 96 96 03/08/21 07:00 Temperature 98.5 F Pulse Rate 84 Respiratory Rate 18 Blood Pressure 119/57 L Pulse Oximetry 99 Fraction of Inspired Oxygen 50 Oxygen Delivery Method Heated High Flow Oxygen Flow Rate 20 Quality TeleICU VTE Deep Vein Thrombosis/Pulmonary Embolism Present on Admission: No Assessment & Plan Assessment & Plan narrative: NEURO: # At risk for decondition -- Encourage OOB as tolerated RESP: # Acute hypoxemia respiratory failure -- Secondary to COVID pneumonia with possible superimposed pulmonary edema and atelectasis -- On HFNC 60/70% -- COVID rx as below -- Start gentle diuresis to seek net negative fluid balance -- HOB elevationn -- Encourage self proning as tolerated -- Encourage IS and OOB as tolerated -- Goal SpO2 > 88% CVS: # HTN -- Goal SBP < 140 -- Monitor BP closely while being diurese ID: # COVID pneumonia -- Rx w/ decadron, baricitinib, and remdesrivir -- Encourage self proning as tolerated -- Start gentle diuresis -- On airbrone/contact/droplet precautions ENDO: -- Goal BS < 180 D/w RN and hospitalist at bedside. Time Spent With Patient Critical Care time: I spent a total of [] minutes of critical care time on this patient's care today; this time is exclusive of procedural time.
[2021-03-08] MEDS: FUROSEMIDE 20 MG/2 ML VIAL IV ×2 (10:28→20:58)
[2021-03-08] MEDS: CODEINE/GUAIFENESIN LIQUID 5ML UDC 5 ML PO ×2 (10:28→17:09)
--- NOTE | 2021-03-08 11:28 | PC.NURSE ---
Day shift note: Placed bhagat as ordered due to diuretic use, no problem placing bhagat catheter but had approximately 2cc of carol red blood out of the tip of his penis, pt denies pain and BPH problems, 800 cc, clear cora urine, out of bhagat after placement. Bleeding has stopped, Dr Montano updated on pt status, will continue to monitor.
[2021-03-08 16:37] LABS: Hematocrit 39.9 % (41-53); Hemoglobin 13.3 g/dL (13.5-17.5); Mean Corpuscular HGB Conc 33.4 % (30-36); Mean Corpuscular Hemoglobin 28.9 PG (26-34); Mean Corpuscular Volume 86.4 fL (80-100); Platelet Count 331 X10^3/uL (150-400); Red Blood Cell Count 4.62 X10^6/uL (4.5-5.9); Red Cell Distribution Width 12.8 % (11.6-14.8)
[2021-03-08] MEDS: REMDESIVIR 100 MG in SODIUM CHLORIDE 0.9% 230 ML 250 ML IV (20:58)
[2021-03-08] MEDS: INSULIN GLARGINE 100 UNIT/ML 3ML PEN SUBCUT (21:07)
--- NOTE | 2021-03-08 23:42 | PM.ICURNDS ---
- Date Patient Seen: 03/08/21 Time Patient Seen: 23:17 :: This patient was seen via real time interactive two-way audiovisual telecommunication. Note: Chart reviewed; spoke with RN. On camera, he is sleeping in right lateral decubitus position saturatinng 95% on 62% FiO2 50 L/min. Will check D-dimer in AM-->if rising, favor increase in enoxaparin to 40 mg SUB q12H; otherwise continue present plan.
[2021-03-09] VITALS (16 sets, daily range): BP systolic 124–152; BP diastolic 61–86; PULSE 72–98; RESP 16–26; TEMP 36.6–37.1; O2SAT 26–97
[2021-03-09] MEDS: CODEINE/GUAIFENESIN LIQUID 5ML UDC 5 ML PO (01:50)
[2021-03-09 05:18] LABS: Hematocrit 41.3 % (41-53); Hemoglobin 13.7 g/dL (13.5-17.5); Mean Corpuscular HGB Conc 33.3 % (30-36); Mean Corpuscular Hemoglobin 28.9 PG (26-34); Mean Corpuscular Volume 86.7 fL (80-100); Platelet Count 355 X10^3/uL (150-400); Red Blood Cell Count 4.76 X10^6/uL (4.5-5.9); Red Cell Distribution Width 12.9 % (11.6-14.8); White Blood Cell Count 7.3 X10^3/uL (4.5-11.0)
[2021-03-09 05:29] LABS: Alanine Aminotransferase 125 IU/L (<50); Albumin 3.9 g/dL (3.5-5.0); Alkaline Phosphatase 62 U/L (38-126); Aspartate Aminotransferase 76 IU/L (17-59); BUN Creatinine Ratio 22.8 (6-22); Bilirubin Total 0.8 mg/dL (0.2-1.3); Bilirubin Unconjugated 0.7 mg/dL (0.0-1.1); Blood Urea Nitrogen 21 mg/dL (9-20); C-Reactive Protein Quant 8.8 mg/dL (<1.0); Calcium 8.5 mg/dL (8.4-10.2); Carbon Dioxide 33 mmol/L (22-32); Chloride 98 mmol/L (98-107); Estimated Glomerular Filt Rate > 60.0 mL/min (>60); Globulin 3.9 g/dL (1.7-4.1); Glucose 224 mg/dL (70-100); HEMOLYSIS < 15 (0-50); Lactate Dehydrogenase 888 U/L (313-618); Magnesium 2.6 mg/dL (1.6-2.3); Potassium 4.5 mmol/L (3.4-5.1); Sodium 137 mmol/L (137-145); Total Protein 7.8 g/dL (6.3-8.2)
[2021-03-09 05:32] LABS: D Dimer 273 ng/mL (<230)
--- NOTE | 2021-03-09 06:04 | PC.NURSE ---
0600- Patient rested well through the night. Heated High Flow titrated to 50 liters and 50% Fio2. Medicated for cough x1. Good UOP after IV lasix x2. Patient still not taking po well. Will monitor.
[2021-03-09] MEDS: INSULIN LISPRO 100 UNIT/ML 3ML VIAL SUBCUT ×2 (08:04→12:10)
[2021-03-09] MEDS: INSULIN GLARGINE 100 UNIT/ML 3ML PEN 10 UNIT SUBCUT (08:05)
[2021-03-09] MEDS: FUROSEMIDE 20 MG/2 ML VIAL IV ×2 (08:09→21:24)
[2021-03-09] MEDS: BARICITINIB 2 MG TABLET 4 MG PO (08:09)
--- NOTE | 2021-03-09 08:31 | CM.IDA ---
Initial DCP Assessment Note Dr Gonzalez, ER Report: 55M nonsmoker with HTN and newly discovered DM returns with worsening SOB. He was admitted on 03/02 and D/Cd on 03/04 presents with worsening SOB and hypoxemia. He was admitted with COVID pneumonia and received remdesivir and Decadron, he was doing relatively well and was discharged home after being set up with home oxygen at a few L. Over the course of today he became increasingly short of breath and when noted pulse ox in the low 80s she liked to send him back. He has had no nausea, vomiting or diarrhea. He was not vaccinated. PCP: Sharan Willis Payer: [facility] Patient lives at home w/spouse and is indp at baseline. Spouse is quarantining at home. Patient likely deconditioned and may benefit from HH therapies upon DC, will follow and r/o service closer to DC. Would need to find a HH agency that could use patient's JOHN coverage Plan: DC home w/family via private auto, likely w/new home O2, r/o need for HH closer to DC REID Borden Discharge Planning/Care Management CM Discharge Assessment Start: 03/09/21 08:28 Freq: Status: Active Protocol: Document 03/09/21 08:28 ALEIDA (Rec: 03/09/21 08:31 [id number]) Discharge Planning Assessment Assigned Salesperson Burial Needs REDI Woodall DPOA/Assigned Designee Name Minal Sloan, spouse Contact Information [phone] Advance Directives? No History Provided By Patient Has Patient been admitted in last 30 Yes days? Comment 03.02-03.04 for COVID pneumonia Prior Living Arrangements House Household Members spouse Type of transporation used prior to Drives own vehicle admit Independent with ADL's Yes Is patient alert and oriented? 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 Likely deconditioned. r/o HH (?) Discharge Plan Home Transportation Arrangement Family, pov Referrals Initiated None needed Additional Comment r/o HH closer to DC Review Status In Process
--- NOTE | 2021-03-09 10:29 | PM.PN.1 ---
Subjective Subjective Date Patient Seen: 03/09/21 Time Patient Seen: 08:00 Interval history: Today he has no complaints. His shortness of breath is improved. His bleeding from around the bhagat has stopped. Exam Vital Signs (past 8 hours): - 03/09/21 02:47 03/09/21 04:00 03/09/21 05:36 Temperature 98.7 F Pulse Rate 72 88 73 Respiratory Rate 16 23 16 Blood Pressure 152/73 H 145/84 H Pulse Oximetry 95 95 93 03/09/21 08:00 03/09/21 09:20 Temperature 98.3 F Pulse Rate 82 97 H Respiratory Rate 18 Blood Pressure 130/72 130/76 Pulse Oximetry 26 L 95 Fraction of Inspired Oxygen 50 Oxygen Delivery Method Heated High Flow Oxygen Flow Rate 50 Narrative Exam Narrative: Gen: alert and oriented Resp: poor air movement CV: Tachycardic, no murmur Abd: obese, soft, non-tender Objective Labs Result Diagrams: 03/09/21 04:44 03/09/21 04:44 Labs: Laboratory Results - last 24 hr 03/08/21 03/08/21 03/09/21 12:48 15:50 04:44 WBC 5.0 RBC 4.62 Hgb 13.3 L Hct 39.9 L MCV 86.4 MCH 28.9 MCHC 33.4 RDW 12.8 Plt Count 331 D-Dimer Sodium 137 Potassium 4.5 Chloride 98 Carbon Dioxide 33 H BUN 21 H Creatinine 0.92 Estimated GFR > 60.0 BUN/Creatinine Ratio 22.8 H Glucose 224 H Calcium 8.5 Magnesium 2.6 H Total Bilirubin 0.8 Conjugated Bilirubin 0.0 Unconjugated Bilirubin 0.7 AST 76 H ALT 125 H Alkaline Phosphatase 62 Lactate Dehydrogenase 888 H C-Reactive Protein 8.8 H Total Protein 7.8 Albumin 3.9 Globulin 3.9 Albumin/Globulin Ratio 1.0 Blood Type A Positive Antibody Screen Negative 03/09/21 03/09/21 04:44 04:44 WBC 7.3 RBC 4.76 Hgb 13.7 Hct 41.3 MCV 86.7 MCH 28.9 MCHC 33.3 RDW 12.9 Plt Count 355 D-Dimer 273 H Sodium Potassium Chloride Carbon Dioxide BUN Creatinine Estimated GFR BUN/Creatinine Ratio Glucose Calcium Magnesium Total Bilirubin Conjugated Bilirubin Unconjugated Bilirubin AST ALT Alkaline Phosphatase Lactate Dehydrogenase C-Reactive Protein Total Protein Albumin Globulin Albumin/Globulin Ratio Blood Type Antibody Screen [facility] Medical History Essential hypertension High cholesterol Hypertension Obesity (BMI 30-39.9) Syncope Surgical History H/O left inguinal hernia repair Family History Mother CAD (coronary artery disease) Diabetes mellitus Father CVA (cerebral vascular accident) Social History household members: spouse Smoking Status: Never smoker Assessment & Plan Assessment & Plan narrative: 1. Acute hypoxemic respiratory failure from COVID pneumonia -covid+ -03/09 titrating down oxygen to 50%/50L hfnc, from 70%/60L -continue remdesivir, dexamethasone, baracitinib -ordered lasix and improved respiratory status -ECHO to evaluate for CHF 2. Diabetes type 2 diagnosed on most recent prior admission -a1c>10 -hold metformin -continue lantus achs glucose check -may need insulin on dc 3. HTN -continue losartan Time Spent With Patient Critical Care time: I spent a total of 33 minutes of critical care time on this patient's care today; this time is exclusive of procedural time. Quality VTE Deep Vein Thrombosis/Pulmonary Embolism Present on Admission: No
--- NOTE | 2021-03-09 13:45 | PM.PN.EICU ---
Subjective Subjective :: This patient was seen via real time interactive two-way audiovisual telecommunication. no acute events feelign better Current Medications Current Medications Medications: Home Medications losartan 50 mg tablet 50 mg PO DAILY #30 tab 03/04/21 [Rx Confirmed 03/08/21] metformin 500 mg tablet 500 mg PO 0800,1700 #60 tab 03/04/21 [Rx Confirmed 03/08/21] Visit Medications (administered) Generic Name Dose Route Start Last Admin Trade Name [place] PRN Reason Stop Dose Admin Dexamethasone 6 mg 03/08/21 21:00 03/08/21 20:58 Dexamethasone 10 Mg/Ml Vial IV 6 mg BEDTIME KVNG Administration Enoxaparin Sodium 40 mg 03/08/21 09:00 03/09/21 08:13 Enoxaparin 40 Mg/0.4 Ml Syringe SUBCUT Not Given DAILY KVNG Furosemide 20 mg 03/08/21 10:00 03/09/21 08:09 Furosemide 20 Mg/2 Ml Vial IV 20 mg BID KVNG Administration Remdesivir 100 mg/ Sodium 250 mls @ 250 mls/hr 03/08/21 21:00 03/08/21 23:43 Chloride IV 03/11/21 21:59 Infused BEDTIME KVNG Infusion Insulin Glargine 10 unit 03/08/21 08:00 03/09/21 08:05 Insulin Glargine 100 Unit/Ml 3ml Pen SUBCUT 10 unit 0800 KVNG Administration Insulin Glargine 5 unit 03/08/21 21:00 03/08/21 21:07 Insulin Glargine 100 Unit/Ml 3ml Pen SUBCUT 5 unit 2100 KVNG Administration Insulin Human Lispro 0 unit 03/08/21 07:45 03/09/21 12:10 Insulin Lispro 100 Unit/Ml 3ml Vial SUBCUT 3 unit ACHS KVNG Administration Protocol Objective Ventilator Parameters: Ventilator Settings FiO2 50 Labs Result Diagrams: 03/09/21 04:44 03/09/21 04:44 Labs: Laboratory Results - last 24 hr 03/08/21 03/08/21 03/09/21 12:48 15:50 04:44 WBC 5.0 RBC 4.62 Hgb 13.3 L Hct 39.9 L MCV 86.4 MCH 28.9 MCHC 33.4 RDW 12.8 Plt Count 331 D-Dimer Sodium 137 Potassium 4.5 Chloride 98 Carbon Dioxide 33 H BUN 21 H Creatinine 0.92 Estimated GFR > 60.0 BUN/Creatinine Ratio 22.8 H Glucose 224 H Calcium 8.5 Magnesium 2.6 H Total Bilirubin 0.8 Conjugated Bilirubin 0.0 Unconjugated Bilirubin 0.7 AST 76 H ALT 125 H Alkaline Phosphatase 62 Lactate Dehydrogenase 888 H C-Reactive Protein 8.8 H Total Protein 7.8 Albumin 3.9 Globulin 3.9 Albumin/Globulin Ratio 1.0 Blood Type A Positive Antibody Screen Negative 03/09/21 03/09/21 04:44 04:44 WBC 7.3 RBC 4.76 Hgb 13.7 Hct 41.3 MCV 86.7 MCH 28.9 MCHC 33.3 RDW 12.9 Plt Count 355 D-Dimer 273 H Sodium Potassium Chloride Carbon Dioxide BUN Creatinine Estimated GFR BUN/Creatinine Ratio Glucose Calcium Magnesium Total Bilirubin Conjugated Bilirubin Unconjugated Bilirubin AST ALT Alkaline Phosphatase Lactate Dehydrogenase C-Reactive Protein Total Protein Albumin Globulin Albumin/Globulin Ratio Blood Type Antibody Screen Exam Vital Signs (past 8 hours): - 03/09/21 08:00 03/09/21 09:20 03/09/21 12:00 Temperature 98.3 F 97.9 F Pulse Rate 82 97 H 88 Respiratory Rate 18 18 Blood Pressure 130/72 130/76 135/78 Pulse Oximetry 26 L 95 90 L Fraction of Inspired Oxygen 40 Oxygen Delivery Method Heated High Flow Oxygen Flow Rate 45 Quality TeleICU VTE Deep Vein Thrombosis/Pulmonary Embolism Present on Admission: No Assessment & Plan Assessment & Plan narrative: 55 year old male with covid pna patietn see n and examined with nurse chart/labs.imaging reviewed currently pt feels welll afebrile, HD stable sats above 92% on high flow plan -avoid sedatives, PT/OT/OoB as tolerated -can give more lasix, maintain negative balance -wean fi02 keep goal above 88% -glucose 140-180s -gi/dvt ppx - dDimer less than 200 -please call tele ICU if condition changes Time Spent With Patient Critical Care time: I spent a total of [] minutes of critical care time on this patient's care today; this time is exclusive of procedural time.
--- NOTE | 2021-03-09 18:24 | PC.NURSE ---
Day shift note: Pt resting in bed most of day, tolerating HHF 45L/40% FiO2 well, SpO2 90-92%. Medicated for cough x1, held lovenox per Dr Montano due to bleeding yesterday. Good UOP after lasix 20mg today. Appetite has improved, eating fruits and oral input increased. Bed low and locked, call light within reach, will continue to monitor
[2021-03-09] MEDS: REMDESIVIR 100 MG in SODIUM CHLORIDE 0.9% 230 ML 250 ML IV (21:23)
[2021-03-09] MEDS: SODIUM CHLORIDE 0.9% FLUSH 10 ML IV (21:24)
[2021-03-09] MEDS: CODEINE/GUAIFENESIN LIQUID 5ML UDC 10 ML PO (21:24)
[2021-03-09] MEDS: DEXAMETHASONE 10 MG/ML VIAL 6 MG IV (21:24)
[2021-03-09] MEDS: INSULIN GLARGINE 100 UNIT/ML 3ML PEN SUBCUT (21:25)
[2021-03-10] VITALS (13 sets, daily range): BP systolic 119–153; BP diastolic 61–80; PULSE 70–112; RESP 16–24; TEMP 36.7–37; O2SAT 90–95
--- NOTE | 2021-03-10 00:39 | PM.ICURNDS ---
- Date Patient Seen: 03/10/21 Time Patient Seen: 00:08 :: This patient was seen via real time interactive two-way audiovisual telecommunication. Note: Chart reviewed; spoke with RN.? On camera, he is sleeping in right lateral decubitus position saturating 92% on 49% FiO2 50 L/min. ? D-dimer this AM actually fell-->continue enoxaparin to 40 mg SUB q24H and other present management.
--- NOTE | 2021-03-10 06:52 | PC.NURSE ---
Shift Note-Patient slept on his Lt side throughput the night, proned for a short time. HHF 50L/40%, SpO2 >88%, mostly 90-94% and up to 97% by am after diuresing 1850ml after HS IV Lasix, lung sounds clearing.
--- NOTE | 2021-03-10 09:32 | PM.PN.EICU ---
Subjective Subjective :: This patient was seen via real time interactive two-way audiovisual telecommunication. No acute issues overnight. HFNC down to 50/40%. Awake and following commands. Current Medications Current Medications Medications: Home Medications losartan 50 mg tablet 50 mg PO DAILY #30 tab 03/04/21 [Rx Confirmed 03/08/21] metformin 500 mg tablet 500 mg PO 0800,1700 #60 tab 03/04/21 [Rx Confirmed 03/08/21] Visit Medications (administered) Generic Name Dose Route Start Last Admin Trade Name Freq PRN Reason Stop Dose Admin Dexamethasone 6 mg 03/08/21 21:00 03/09/21 21:24 Dexamethasone 10 Mg/Ml Vial IV 6 mg BEDTIME KVNG Administration Enoxaparin Sodium 40 mg 03/08/21 09:00 03/09/21 08:13 Enoxaparin 40 Mg/0.4 Ml Syringe SUBCUT Not Given DAILY KVNG Furosemide 20 mg 03/08/21 10:00 03/09/21 21:24 Furosemide 20 Mg/2 Ml Vial IV 20 mg BID KVNG Administration Guaifenesin/Codeine Phosphate 10 ml 03/09/21 08:25 03/09/21 21:24 Codeine/Guaifenesin Liquid 5ml Udc PO 10 ml Q6H PRN Administration Cough Remdesivir 100 mg/ Sodium 250 mls @ 250 mls/hr 03/08/21 21:00 03/09/21 23:52 Chloride IV 03/11/21 21:59 Infused BEDTIME KVNG Infusion Insulin Glargine 10 unit 03/08/21 08:00 03/09/21 08:05 Insulin Glargine 100 Unit/Ml 3ml Pen SUBCUT 10 unit 0800 KVNG Administration Insulin Glargine 5 unit 03/08/21 21:00 03/09/21 21:25 Insulin Glargine 100 Unit/Ml 3ml Pen SUBCUT 5 unit 2100 KVNG Administration Insulin Human Lispro 0 unit 03/08/21 07:45 03/09/21 21:26 Insulin Lispro 100 Unit/Ml 3ml Vial SUBCUT Not Given ACHS KVNG Protocol Sodium Chloride 10 ml 03/09/21 21:00 03/09/21 21:24 Sodium Chloride 0.9% Flush IV 10 ml BID KVNG Administration Objective Ventilator Parameters: Ventilator Settings FiO2 50 Labs Result Diagrams: 03/09/21 04:44 03/09/21 04:44 Exam Vital Signs (past 8 hours): - 03/10/21 02:00 03/10/21 05:10 03/10/21 06:44 Temperature 98.2 F Pulse Rate 88 90 84 Respiratory Rate 19 22 18 Blood Pressure 124/61 124/61 124/67 Pulse Oximetry 91 95 90 L 03/10/21 08:35 03/10/21 09:00 Temperature 98.6 F Pulse Rate 70 86 Respiratory Rate 16 16 Blood Pressure 124/67 132/73 Pulse Oximetry 94 92 Fraction of Inspired Oxygen 39 Oxygen Delivery Method Heated High Flow Oxygen Flow Rate 50 Quality TeleICU VTE Deep Vein Thrombosis/Pulmonary Embolism Present on Admission: No Assessment & Plan Assessment & Plan narrative: NEURO: # At risk for decondition --Cont OOB as tolerated RESP: # Acute hypoxemia respiratory failure -- Secondary to COVID pneumonia with possible superimposed pulmonary edema and atelectasis -- Improving slowly -- Cont titratring down FiO2 to maintain goal SPO2 > 88% -- COVID rx as below -- Cont gentle diuresis to seek net negative fluid balance -- HOB elevationn -- Encourage IS and OOB as tolerated CVS: # HTN -- Goal SBP < 140 -- Monitor BP closely while being diurese ID: # COVID pneumonia -- Rx w/ decadron, baricitinib, and remdesrivir -- Encourage self proning as tolerated -- Cont gentle diuresis? -- On airbrone/contact/droplet precautions ENDO: -- Goal BS < 180 D/w RN at bedside. Time Spent With Patient Critical Care time: I spent a total of [] minutes of critical care time on this patient's care today; this time is exclusive of procedural time.
--- NOTE | 2021-03-10 09:37 | DI.ECHO.S_ITS ---
[facility]---------+ [facility] +---------+ : : [address] : : : [place], [place] : : : : [id number] : : : : Phone: [phone]+ Echocardiogram Report + + :Name: MARY TERRY Study Date: 03/10/2021 Height: 71 in : :[facility] ReadingLocation: Weight: 249 lb : : Gender: Male BSA: 2.3 m2 : :: 1965 Age: 55 yrs BP: 132/73 mmHg: :Reason For Study: SARAH JOSEPH : :Ordering Physician: Anette : :Hospitalist Performed By: Tonya Monk : :Referring: PADMINI CEBALLOS : + + Interpretation Summary The ejection fraction is estimated to be 55-60%. Diastolic parameters suggest probable normal left ventricular diastolic function and normal filling pressures. The right ventricle is normal in size and function. No significant valvular abnormalities. Unable to estimate PASP. Procedure: A two-dimensional transthoracic echocardiogram with color flow and Doppler was performed. The study quality was technically adequate. There is no prior echocardiogram noted for this patient. Heart rate and rhythm are not evaluated during today's exam due to limiting equipment brought into an Airborne precaution room. Left Ventricle: The left ventricle is normal in size and wall thickness. The ejection fraction is estimated to be 55-60%. There are no obvious focal wall motion abnormalities noted but poor endocardial definition reduces the sensitivity for the detection of such. Diastolic parameters suggest probable normal left ventricular diastolic function and normal filling pressures. Right Ventricle: The right ventricle is normal in size and function. Atria: Both atria are normal in size. Mitral Valve: The mitral valve is normal in structure and function. There is trace mitral regurgitation. Aortic Valve: The aortic valve is trileaflet. There is no aortic valve stenosis. No aortic regurgitation is present. Tricuspid Valve: The tricuspid valve is normal in structure and function. The right ventricular systolic pressure is estimated to be at least 32 mmHg based on an estimated right atrial pressure of 3 mm Hg. There is a trace or physiologic amount of tricuspid regurgitation. Pulmonic Valve: The pulmonic valve is not well visualized. Great Vessels: The aortic root is normal size. The ascending aorta is normal in size. The IVC is of normal diameter and collapses greater than 50% with a sniff. This suggests a low right atrial pressure of 3 mm Hg. Pericardium/ Pleura There is no pericardial effusion. MMode/2D Measurements & Calculations LVIDd: 4.7 cm LVOT diam: 2.2 cm LVIDs: 3.1 cm Ao root diam: 3.5 cm FS: 34.1 % asc Aorta Diam: 3.2 cm EPSS: 0.68 cm IVSd: 1.0 cm LVPWd: 1.0 cm LV christensen. diameter/BSA (cm/m^2): 2.0 LV sys. diameter/BSA (cm/m^2): 1.3 LA A2 area: 20.2 cm2 RA long axis: 7.2 cm LA A4 area: 19.5 cm2 RA area: 21.6 cm2 LA length (vol): 6.5 cm RA vol: 55.3 ml LA vol: 51.4 ml RA : 23.9 ml/m2 LA vol index: 22.2 ml/m2 IVC diam: 1.9 cm RVD1 (basal): 3.6 cm TAPSE: 2.1 cm Doppler Measurements & Calculations Ao V2 max: 118.4 cm/sec LVOT Max Brett: 100.1 cm/sec Ao V2 mean: 89.2 cm/sec LV V1 max P.0 mmHg Ao max P.6 mmHg LV V1 VTI: 14.7 cm Ao mean P.3 mmHg LILIAM(I,D): 3.2 cm2 Ao V2 VTI: 18.0 cm LILIAM(V,D): 3.3 cm2 sev ratio: 0.81 LILIAM indexed to BSA (cm^2/m^2): 1.4 MV E max brett: 62.4 cm/sec TR max brett: 266.7 cm/sec MV A max brett: 69.8 cm/sec TR max P.5 mmHg MV E/A: 0.89 PA V2 max: 84.3 cm/sec Med Peak E' Brett: 5.3 cm/sec PA V2 mean: 62.2 cm/sec E/E' med: 11.7 PA mean P.7 mmHg Lat Peak E' Brett: 6.7 cm/sec PA pr(Accel): 46.5 mmHg E/E' lat: 9.3 E/e' average: 10.5 MV dec time: 0.24 sec SV([facility]): 57.2 ml Reading Physician:01:41 PM
[2021-03-10] MEDS: ENOXAPARIN 40 MG/0.4 ML SYRINGE SUBCUT (09:43)
[2021-03-10] MEDS: BARICITINIB 2 MG TABLET 4 MG PO (09:44)
[2021-03-10] MEDS: SODIUM CHLORIDE 0.9% FLUSH 10 ML IV ×2 (09:45→21:48)
[2021-03-10] MEDS: FUROSEMIDE 20 MG/2 ML VIAL IV (09:45)
[2021-03-10] MEDS: INSULIN LISPRO 100 UNIT/ML 3ML VIAL SUBCUT ×2 (09:46→12:26)
[2021-03-10] MEDS: INSULIN GLARGINE 100 UNIT/ML 3ML PEN 10 UNIT SUBCUT (09:48)
[2021-03-10] MEDS: CODEINE/GUAIFENESIN LIQUID 5ML UDC 10 ML PO (09:54)
[2021-03-10 10:17] LABS: Hematocrit 42.1 % (41-53); Mean Corpuscular HGB Conc 33.2 % (30-36); Mean Corpuscular Hemoglobin 28.8 PG (26-34); Mean Corpuscular Volume 86.6 fL (80-100); Platelet Count 441 X10^3/uL (150-400); Red Blood Cell Count 4.87 X10^6/uL (4.5-5.9); Red Cell Distribution Width 12.6 % (11.6-14.8); White Blood Cell Count 9.4 X10^3/uL (4.5-11.0)
[2021-03-10 10:39] LABS: BUN Creatinine Ratio 26.4 (6-22); Blood Urea Nitrogen 23 mg/dL (9-20); Calcium 8.4 mg/dL (8.4-10.2); Carbon Dioxide 31 mmol/L (22-32); Chloride 97 mmol/L (98-107); Estimated Glomerular Filt Rate > 60.0 mL/min (>60); Glucose 258 mg/dL (70-100); HEMOLYSIS < 15 (0-50); Magnesium 2.5 mg/dL (1.6-2.3); Potassium 4.2 mmol/L (3.4-5.1); Sodium 135 mmol/L (137-145)
--- NOTE | 2021-03-10 14:28 | PM.PN.1 ---
Subjective Subjective Date Patient Seen: 03/10/21 Time Patient Seen: 08:00 Interval history: He does not feel short of breath. He is able to lie on his side. He is feeling improved. Exam Vital Signs (past 8 hours): - 03/10/21 06:44 03/10/21 08:35 03/10/21 09:00 Temperature 98.2 F 98.6 F Pulse Rate 84 70 86 Respiratory Rate 18 16 16 Blood Pressure 124/67 124/67 132/73 Pulse Oximetry 90 L 94 92 03/10/21 10:40 03/10/21 11:20 03/10/21 11:25 Temperature Pulse Rate 81 84 Respiratory Rate 18 16 Blood Pressure 132/73 Pulse Oximetry 94 92 91 03/10/21 12:00 Temperature 98.1 F Pulse Rate 90 Respiratory Rate 17 Blood Pressure 119/65 Pulse Oximetry 90 L Fraction of Inspired Oxygen 39 Oxygen Delivery Method High Flow Nasal Cannula Oxygen Flow Rate 5 Narrative Exam Narrative: Gen: alert and oriented Resp: poor air movement CV: Tachycardic, no murmur Abd: obese, soft, non-tender Objective Labs Result Diagrams: 03/10/21 09:55 03/10/21 09:55 Labs: Laboratory Results - last 24 hr 03/10/21 03/10/21 09:55 09:55 WBC 9.4 RBC 4.87 Hgb 14.0 Hct 42.1 MCV 86.6 MCH 28.8 MCHC 33.2 RDW 12.6 Plt Count 441 H Sodium 135 L Potassium 4.2 Chloride 97 L Carbon Dioxide 31 BUN 23 H Creatinine 0.87 Estimated GFR > 60.0 BUN/Creatinine Ratio 26.4 H Glucose 258 H Calcium 8.4 Magnesium 2.5 H PFSH Medical History Essential hypertension High cholesterol Hypertension Obesity (BMI 30-39.9) Syncope Surgical History H/O left inguinal hernia repair Family History Mother CAD (coronary artery disease) Diabetes mellitus Father CVA (cerebral vascular accident) Social History household members: spouse Smoking Status: Never smoker Assessment & Plan Assessment & Plan narrative: 1. Acute hypoxemic respiratory failure from COVID pneumonia -covid+ -continues to improve by titrating down on heated high flow -continue remdesivir, dexamethasone, baracitinib -ordered lasix and improved respiratory status -ECHO to evaluate for CHF 2. Diabetes type 2 diagnosed on most recent prior admission -a1c>10 -hold metformin -continue lantus, achs glucose check -may need insulin on dc 3. HTN -continue losartan Time Spent With Patient Critical Care time: I spent a total of [] minutes of critical care time on this patient's care today; this time is exclusive of procedural time. Quality VTE Deep Vein Thrombosis/Pulmonary Embolism Present on Admission: No
[2021-03-10] MEDS: DEXAMETHASONE 10 MG/ML VIAL 6 MG IV (20:21)
[2021-03-10] MEDS: REMDESIVIR 100 MG in SODIUM CHLORIDE 0.9% 230 ML 250 ML IV (20:22)
[2021-03-10] MEDS: INSULIN GLARGINE 100 UNIT/ML 3ML PEN SUBCUT (20:24)
[2021-03-11] VITALS (8 sets, daily range): BP systolic 114–135; BP diastolic 58–79; PULSE 75–99; RESP 18–24; TEMP 36.6–37; O2SAT 88–97
[2021-03-11 05:28] LABS: BUN Creatinine Ratio 23.9 (6-22); Blood Urea Nitrogen 21 mg/dL (9-20); Calcium 8.6 mg/dL (8.4-10.2); Carbon Dioxide 35 mmol/L (22-32); Chloride 95 mmol/L (98-107); Estimated Glomerular Filt Rate > 60.0 mL/min (>60); Glucose 207 mg/dL (70-100); HEMOLYSIS < 15 (0-50); Magnesium 2.6 mg/dL (1.6-2.3); Potassium 4.6 mmol/L (3.4-5.1); Sodium 134 mmol/L (137-145)
[2021-03-11] MEDS: INSULIN LISPRO 100 UNIT/ML 3ML VIAL SUBCUT ×2 (09:03→13:21)
[2021-03-11] MEDS: SODIUM CHLORIDE 0.9% FLUSH 10 ML IV ×2 (09:08→20:41)
[2021-03-11] MEDS: ENOXAPARIN 40 MG/0.4 ML SYRINGE SUBCUT (09:08)
[2021-03-11] MEDS: BARICITINIB 2 MG TABLET 4 MG PO (09:08)
[2021-03-11] MEDS: FUROSEMIDE 20 MG/2 ML VIAL IV (09:08)
[2021-03-11] MEDS: INSULIN GLARGINE 100 UNIT/ML 3ML PEN 10 UNIT SUBCUT (09:11)
--- NOTE | 2021-03-11 11:32 | P.PN_ITS ---
Subjective Subjective Date Patient Seen: 03/11/21 Interval history: PATIENT REPORTED FEELING BETTER NO INCREASING COUGH NO CHEST PAIN OR SHORTNESS OF BREATH REPORTED DECREASED OXYGEN SATURATION DURING MODERATE EXERTION DENIES CHEST PRESSURE. NO OTHER COMPLAINTS NO OTHER SIGNIFICANT ISSUES OVERNIGHT Exam Vital Signs (past 8 hours): - 03/11/21 03:55 03/11/21 04:00 03/11/21 08:00 Temperature 98.1 F 98 F Pulse Rate 78 78 96 H Respiratory Rate 19 19 18 Blood Pressure 114/58 L 124/71 Pulse Oximetry 97 91 89 L 03/11/21 09:30 Temperature Pulse Rate 75 Respiratory Rate 20 Blood Pressure Pulse Oximetry 89 L Fraction of Inspired Oxygen 39 Oxygen Delivery Method High Flow Nasal Cannula Oxygen Flow Rate 7 Narrative Exam Narrative: NO ACUTE DISTRESS. PATIENT IS ALERT, AWAKE, ORIENTED X3. HEAD ATRAUMATIC NORMOCEPHALIC NECK : SUPPLE WITHOUT ADENOPATHY NO CAROTID BRUITS EYE: EOMI, PERRLA, NORMAL CONJUNCTIVA; NO JAUNDICE CHEST: REGULAR RATE. NO RUBS. PMI IS NON DISPLACED. NO MURMURS; NORMAL S1- S2 PULMONARY: DECREASED BS OVER THE BASES. MILD BIBASILAR CRACKLES NOTED; NO INCREASED DULLNESS TO PERCUSSION NO WHEEZING. NO PLEURAL RUBS ABDOMEN: OBESE BUT SOFT. NONTENDER. NONDISTENDED. BOWEL SOUNDS ARE PRESENT IN ALL 4 QUADRANTS. EXTREMITIES: NO EDEMA.. NO CYANOSIS CLUBBING NOTED. NEURO: CRANIAL NERVES 2-12 GROSSLY INTACT. NO FOCAL NEUROLOGICAL DEFICIT NOTED. MSK: NORMAL RANGE OF MOTION FOR AGE. NO JOINT EFFUSION. SKIN: NORMAL FOR ETHNICITY; NO ECCHYMOSIS. NO LESION. GOOD TURGOR.; NO RASHES : NORMAL EXTERNAL GENITALIA. PSYCH : APPROPRIATE MOOD AND AFFECT. ALERT, AWAKE, ORIENTED X3 Objective Labs Result Diagrams: 03/10/21 09:55 03/11/21 04:25 Labs: Laboratory Results - last 24 hr 03/11/21 03/11/21 04:25 04:45 Sodium 134 L Potassium 4.6 Chloride 95 L Carbon Dioxide 35 H BUN 21 H Creatinine 0.88 Estimated GFR > 60.0 BUN/Creatinine Ratio 23.9 H Glucose 207 H Calcium 8.6 Magnesium 2.6 H Nasal Screen MRSA (PCR) [facility] Medical History Essential hypertension High cholesterol Hypertension Obesity (BMI 30-39.9) Syncope Surgical History H/O left inguinal hernia repair Family History Mother CAD (coronary artery disease) Diabetes mellitus Father CVA (cerebral vascular accident) Social History household members: spouse Smoking Status: Never smoker Assessment & Plan Assessment & Plan narrative: PROBLEM LIST ACUTE HYPOXIC RESPIRATORY FAILURE COVID-19 PNEUMONIA. ON DAY 3 OUT 4 OF REMDESIVIR OBESITY. LIFESTYLE CHANGES RECOMMENDED DIABETES TYPE 2. BLOOD SUGAR FOR THE CONTROL REACTIVE THROMBOCYTOSIS. MONITOR CLOSELY PLAN CONTINUE REMDESIVIR PREVIOUSLY ORDERED STRESS STEROIDS TO ORAL TABLET IN THE NEXT 24 HOURS IN PREPARATION FOR DISCHARGE CONTINUE WITH AGGRESSIVE PULMONARY TOILETING RESPIRATORY RN TELEPHONIC GREATLY APPRECIATED OXYGEN SUPPLEMENT TO MAINTAIN PROPER OXYGEN SATURATION ABOVE 88% AT ALL TIMES WILL REPEAT CHEST X-RAY IN THE MORNING WILL ALSO CONSIDER REPEATING ABG IF INDICATED CLINICALLY CONSIDER CT SCAN OF THE CHEST WITH CONTRAST TO RULE OUT ANY THROMBOTIC EVENT IF INDICATED WILL CONSIDER ADDING ANTIBIOTICS TO CURRENT MEDICAL TREATMENT CONTINUE ISOLATION PROCEDURE PER HOSPITAL PROTOCOL REPEAT LABS IN THE MORNING WELL ENCOURAGED PATIENT TO STAY MOBILE POSSIBLE ADDITIONAL MANAGEMENT PER CLINICAL COURSE DISCHARGE PER CLINICAL COURSE PROGNOSIS IS GUARDED Time Spent With Patient Critical Care time: I spent a total of [] minutes of critical care time on this patient's care today; this time is exclusive of procedural time. Quality VTE Deep Vein Thrombosis/Pulmonary Embolism Present on Admission: No
[2021-03-11] MEDS: CODEINE/GUAIFENESIN LIQUID 5ML UDC 10 ML PO ×2 (13:24→21:07)
[2021-03-11] MEDS: POLYVINYL ALCOHOL DROPS 1 DROPS EYE-BOTH (13:30)
[2021-03-11] MEDS: SODIUM CHLORIDE NASAL SPRAY 1 SPRAY NASAL (18:33)
--- NOTE | 2021-03-11 18:34 | PC.NURSE ---
Addendum entered by Opal Jarrett R.N. 03/11/21 18:36: ALLOWED TO KEEP EYE GTTS/NASAL SPRAY AT BEDSIDE FOR PTS USE Original Note: PT CONTINUES TO SLOWLY IMPROVE WITH HIS COVID PNA- PRESENTLY ON 7L HFNC WITH JSPO2 89-94% DENIES SOB EXCEPT WITH ACTIVITY AND EVEN THEN HE RECOVERS FAIRLY QUICKLY- REFUSING TO PRONE BUT DID SIDE LAY FOR APPROX 2 HOURS TOTAL PAST 12 H- UP IN CHAIR FOR EVENING MEAL- BLACK NOLAN
[2021-03-11] MEDS: DEXAMETHASONE 10 MG/ML VIAL 6 MG IV (20:40)
[2021-03-11] MEDS: REMDESIVIR 100 MG in SODIUM CHLORIDE 0.9% 230 ML 250 ML IV (20:40)
[2021-03-11] MEDS: INSULIN GLARGINE 100 UNIT/ML 3ML PEN SUBCUT (20:40)
[2021-03-11] MEDS: BENZOCAINE/MENTHOL 1 LOZ PKT 1 EACH PO (21:07)
[2021-03-12] VITALS (7 sets, daily range): BP systolic 113–143; BP diastolic 59–82; PULSE 77–93; RESP 18–20; TEMP 36.7–36.9; O2SAT 89–94
[2021-03-12 05:19] LABS: Add Manual Diff / Slide Review NO; Basophils Absolute Auto 0 /uL (0-100); Eosinophils Absolute Auto 100 /uL (0-450); Eosinophils Percent Auto 0.5 % (2-4); Hematocrit 40.5 % (41-53); Hemoglobin 13.4 g/dL (13.5-17.5); Lymphocytes Absolute Auto 1100 /uL (1100-4500); Lymphocytes Percent Auto 9.6 % (25-40); Mean Corpuscular HGB Conc 33.1 % (30-36); Mean Corpuscular Hemoglobin 28.5 PG (26-34); Mean Corpuscular Volume 85.9 fL (80-100); Monocytes Absolute Auto 1200 /uL (0-900); Monocytes Percent Auto 10.8 % (3-14); Neutrophils Absolute Auto 9100 /uL (1500-7000); Neutrophils Percent Auto 79.1 % (50-75); Platelet Count 445 X10^3/uL (150-400); Red Blood Cell Count 4.72 X10^6/uL (4.5-5.9); Red Cell Distribution Width 12.5 % (11.6-14.8); White Blood Cell Count 11.5 X10^3/uL (4.5-11.0)
[2021-03-12 05:33] LABS: Alanine Aminotransferase 105 IU/L (<50); Albumin 3.6 g/dL (3.5-5.0); Albumin Globulin Ratio 0.9 (1.0-2.8); Alkaline Phosphatase 65 U/L (38-126); Aspartate Aminotransferase 59 IU/L (17-59); BUN Creatinine Ratio 23.4 (6-22); Bilirubin Total 0.7 mg/dL (0.2-1.3); Blood Urea Nitrogen 18 mg/dL (9-20); Calcium 8.7 mg/dL (8.4-10.2); Carbon Dioxide 31 mmol/L (22-32); Chloride 97 mmol/L (98-107); Estimated Glomerular Filt Rate > 60.0 mL/min (>60); Globulin 3.8 g/dL (1.7-4.1); Glucose 192 mg/dL (70-100); HEMOLYSIS < 15 (0-50); Potassium 4.2 mmol/L (3.4-5.1); Sodium 133 mmol/L (137-145); Total Protein 7.4 g/dL (6.3-8.2)
--- NOTE | 2021-03-12 07:00 | DI.RAD.S_ITS ---
PROCEDURE: XR CHEST 1V INDICATIONS: F/U PNA TECHNIQUE: One view of the chest was acquired. COMPARISON: [facility], , XR CHEST 1V, 03/02/2021, 10:38. [facility], CR, XR CHEST 1V, 03/08/2021, 0:57. FINDINGS: Surgical changes and devices: None. Lungs and pleura: Bilateral airspace opacity is not felt to be significantly changed. Low lung volumes. No pleural effusions or pneumothorax. Mediastinum: Mediastinal contours appear unchanged. Heart size is unchanged. Bones and chest wall: No suspicious bony lesions. Overlying soft tissues appear unremarkable. IMPRESSION: Bilateral patchy airspace opacity is not felt to be significantly changed. Dictated by: Santhosh Galindo M.D. on 03/12/2021 at 8:53 Approved by: Santhosh Galindo M.D. on 03/12/2021 at 8:54
[2021-03-12] MEDS: DOXYCYCLINE HYCLATE 100 MG TABLET PO ×2 (09:49→20:11)
[2021-03-12] MEDS: guaiFENesin ER 600 MG TAB PO ×2 (09:49→20:11)
[2021-03-12] MEDS: ASCORBIC ACID 500 MG TABLET 1000 MG PO (09:49)
[2021-03-12] MEDS: CHOLECALCIFEROL (VITAMIN D3) 1,000 UNIT TABLET 1000 UNIT PO (09:49)
[2021-03-12] MEDS: FUROSEMIDE 20 MG TABLET PO (09:49)
[2021-03-12] MEDS: LACTOBACILLUS ACIDOPHILUS TABLET 1 EACH PO ×3 (09:49→17:11)
[2021-03-12] MEDS: ENOXAPARIN 40 MG/0.4 ML SYRINGE SUBCUT (09:50)
[2021-03-12] MEDS: ZINC SULFATE 220 MG CAPSULE PO (09:50)
[2021-03-12] MEDS: BARICITINIB 2 MG TABLET 4 MG PO (09:50)
[2021-03-12] MEDS: INSULIN GLARGINE 100 UNIT/ML 3ML PEN 10 UNIT SUBCUT (09:51)
[2021-03-12] MEDS: CEFDINIR 300 MG CAPSULE PO ×2 (09:52→20:10)
[2021-03-12] MEDS: CYANOCOBALAMIN (VITAMIN B-12) 100 MCG TABLET PO (09:52)
[2021-03-12] MEDS: dexAMETHasone 4 MG TABLET PO ×3 (09:54→21:21)
[2021-03-12] MEDS: SODIUM CHLORIDE 0.9% FLUSH 10 ML IV ×2 (09:54→20:14)
[2021-03-12] MEDS: INSULIN LISPRO 100 UNIT/ML 3ML VIAL SUBCUT ×3 (12:35→20:16)
--- NOTE | 2021-03-12 16:57 | PM.PN.1 ---
Subjective Subjective Date Patient Seen: 03/12/21 Interval history: NO FEVER OR CHILLS REPORTED OVERNIGHT CONTINUE TO HAVE SOME MILD COUGHING SPELL NO INCREASING SHORTNESS OF BREATH FEELS LIKE HIS DYSPNEA ON EXERTION IS IMPROVING NO OTHER COMPLAINTS Exam Vital Signs (past 8 hours): - 03/12/21 12:25 Temperature 98.1 F Pulse Rate 93 H Respiratory Rate 18 Blood Pressure 126/78 Pulse Oximetry 89 L Fraction of Inspired Oxygen 39 Oxygen Delivery Method High Flow Nasal Cannula Oxygen Flow Rate 6 Narrative Exam Narrative: NO ACUTE DISTRESS.? PATIENT IS ALERT, AWAKE, ORIENTED X3. HEAD ATRAUMATIC NORMOCEPHALIC NECK : SUPPLE WITHOUT ADENOPATHY NO CAROTID BRUITS EYE:? EOMI, PERRLA, NORMAL CONJUNCTIVA; NO JAUNDICE CHEST:? REGULAR RATE.? ? NO RUBS.? PMI IS NON DISPLACED.? NO MURMURS; NORMAL S1-S2 PULMONARY:? DECREASED BS OVER THE BASES.? MILD BIBASILAR CRACKLES NOTED; NO INCREASED DULLNESS TO PERCUSSION NO WHEEZING.? NO PLEURAL RUBS ABDOMEN:? OBESE BUT SOFT.? NONTENDER.? NONDISTENDED.? BOWEL SOUNDS ARE PRESENT IN ALL 4 QUADRANTS. ? EXTREMITIES: NO EDEMA..? NO CYANOSIS CLUBBING NOTED. NEURO:? CRANIAL NERVES 2-12 GROSSLY INTACT. NO FOCAL NEUROLOGICAL DEFICIT NOTED. MSK:? NORMAL RANGE OF MOTION FOR AGE.? NO JOINT EFFUSION. SKIN:? NORMAL FOR ETHNICITY; NO ECCHYMOSIS.? NO LESION. ? GOOD? TURGOR.; NO RASHES :? NORMAL EXTERNAL GENITALIA. PSYCH :? APPROPRIATE MOOD AND AFFECT.? ALERT, AWAKE, ORIENTED X3 Objective Labs Result Diagrams: 03/12/21 04:30 03/12/21 04:30 Labs: Laboratory Results - last 24 hr 03/12/21 03/12/21 04:30 04:30 WBC 11.5 H RBC 4.72 Hgb 13.4 L Hct 40.5 L MCV 85.9 MCH 28.5 MCHC 33.1 RDW 12.5 Plt Count 445 H Neut % (Auto) 79.1 H Lymph % (Auto) 9.6 L [place] % (Auto) 10.8 Eos % (Auto) 0.5 L Baso % (Auto) 0.0 Neut # (Auto) 9100 H Lymph # (Auto) 1100 [place] # (Auto) 1200 H Eos # (Auto) 100 Baso # (Auto) 0 Sodium 133 L Potassium 4.2 Chloride 97 L Carbon Dioxide 31 BUN 18 Creatinine 0.77 Estimated GFR > 60.0 BUN/Creatinine Ratio 23.4 H Glucose 192 H Calcium 8.7 Total Bilirubin 0.7 AST 59 ALT 105 H Alkaline Phosphatase 65 Total Protein 7.4 Albumin 3.6 Globulin 3.8 Albumin/Globulin Ratio 0.9 L PFSH Medical History Essential hypertension High cholesterol Hypertension Obesity (BMI 30-39.9) Syncope Surgical History H/O left inguinal hernia repair Family History Mother CAD (coronary artery disease) Diabetes mellitus Father CVA (cerebral vascular accident) Social History household members: spouse Smoking Status: Never smoker Assessment & Plan Assessment & Plan narrative: PROBLEM LIST ACUTE HYPOXIC RESPIRATORY FAILURE. IMPROVED. ON 6 LPM PER NASAL CANNULA COVID-19 PNEUMONIA.? COMPLETED A COURSE OF REMDESIVIR OBESITY.? LIFESTYLE CHANGES RECOMMENDED DIABETES TYPE 2.? BLOOD SUGAR FOR THE CONTROL REACTIVE THROMBOCYTOSIS.? MONITOR CLOSELY PLAN 03/12 X-RAY REPEATED TODAY DID NOT SHOW ANY SIGNIFICANT CHANGES OR IMPROVEMENT FROM PRIOR WILL GO AHEAD AND START PATIENT ON ANTIBIOTICS THERAPY WILL ALSO DISCONTINUE DEXAMETHASONE INTRAVENOUSLY AND SWITCHED TO ORAL TABLETS VITAMIN COCKTAILS WILL BE ORDERED AGGRESSIVE ANTI-REFLUX THERAPY ORDERED WITH CARAFATE AND PEPCID AVOID PPI WHILE ON ANTIBIOTIC THERAPY DUE TO ASSOCIATED WITH C DIFF COLITIS WILL ALSO ADD ACIDOPHILUS TABLETS WITH EACH MEAL ADDITIONAL MANAGEMENT PER CLINICAL COURSE DISCHARGE ONCE CLINICALLY INDICATED 1/2 CONTINUE REMDESIVIR PREVIOUSLY ORDERED STRESS STEROIDS TO ORAL TABLET IN THE NEXT 24 HOURS IN PREPARATION FOR DISCHARGE CONTINUE WITH AGGRESSIVE PULMONARY TOILETING RESPIRATORY PROGRAM AIDE GROUP WORK GREATLY APPRECIATED OXYGEN SUPPLEMENT TO MAINTAIN PROPER OXYGEN SATURATION ABOVE 88% AT ALL TIMES WILL REPEAT CHEST X-RAY IN THE MORNING WILL ALSO CONSIDER REPEATING ABG IF INDICATED CLINICALLY CONSIDER CT SCAN OF THE CHEST WITH CONTRAST TO RULE OUT ANY ? THROMBOTIC EVENT IF INDICATED WILL CONSIDER ADDING ANTIBIOTICS TO CURRENT MEDICAL TREATMENT CONTINUE ISOLATION PROCEDURE PER HOSPITAL PROTOCOL REPEAT LABS IN THE MORNING WELL ENCOURAGED PATIENT TO STAY MOBILE POSSIBLE ADDITIONAL MANAGEMENT PER CLINICAL COURSE DISCHARGE PER CLINICAL COURSE PROGNOSIS IS GUARDED Time Spent With Patient Critical Care time: I spent a total of [] minutes of critical care time on this patient's care today; this time is exclusive of procedural time. Quality VTE Deep Vein Thrombosis/Pulmonary Embolism Present on Admission: No
[2021-03-12] MEDS: SUCRALFATE 1 GM TABLET PO ×2 (17:11→20:12)
[2021-03-12] MEDS: FAMOTIDINE 20 MG TABLET PO (20:11)
[2021-03-12] MEDS: INSULIN GLARGINE 100 UNIT/ML 3ML PEN SUBCUT (20:12)
[2021-03-13] VITALS (9 sets, daily range): BP systolic 117–136; BP diastolic 58–93; PULSE 80–89; RESP 16–20; TEMP 36.6–37.1; O2SAT 88–94
[2021-03-13] MEDS: dexAMETHasone 4 MG TABLET PO ×3 (05:35→21:52)
[2021-03-13 05:45] LABS: Add Manual Diff / Slide Review NO; Basophils Absolute Auto 0 /uL (0-100); Basophils Percent Auto 0.2 % (0-2); Eosinophils Absolute Auto 0 /uL (0-450); Eosinophils Percent Auto 0.2 % (2-4); Hematocrit 40.7 % (41-53); Hemoglobin 13.7 g/dL (13.5-17.5); Lymphocytes Absolute Auto 1000 /uL (1100-4500); Lymphocytes Percent Auto 8.8 % (25-40); Mean Corpuscular HGB Conc 33.8 % (30-36); Mean Corpuscular Hemoglobin 28.9 PG (26-34); Mean Corpuscular Volume 85.5 fL (80-100); Monocytes Absolute Auto 1300 /uL (0-900); Monocytes Percent Auto 11.1 % (3-14); Neutrophils Absolute Auto 9000 /uL (1500-7000); Neutrophils Percent Auto 79.7 % (50-75); Platelet Count 430 X10^3/uL (150-400); Red Blood Cell Count 4.75 X10^6/uL (4.5-5.9); Red Cell Distribution Width 12.6 % (11.6-14.8); White Blood Cell Count 11.2 X10^3/uL (4.5-11.0)
[2021-03-13 05:53] LABS: Alanine Aminotransferase 91 IU/L (<50); Albumin 3.7 g/dL (3.5-5.0); Albumin Globulin Ratio 0.9 (1.0-2.8); Alkaline Phosphatase 67 U/L (38-126); Aspartate Aminotransferase 44 IU/L (17-59); Bilirubin Total 0.8 mg/dL (0.2-1.3); Blood Urea Nitrogen 19 mg/dL (9-20); Carbon Dioxide 30 mmol/L (22-32); Chloride 100 mmol/L (98-107); Estimated Glomerular Filt Rate > 60.0 mL/min (>60); Glucose 186 mg/dL (70-100); HEMOLYSIS 20 (0-50); Potassium 4.6 mmol/L (3.4-5.1); Sodium 135 mmol/L (137-145); Total Protein 7.7 g/dL (6.3-8.2)
[2021-03-13] MEDS: INSULIN LISPRO 100 UNIT/ML 3ML VIAL SUBCUT ×2 (08:37→12:48)
[2021-03-13] MEDS: ENOXAPARIN 40 MG/0.4 ML SYRINGE SUBCUT (08:38)
[2021-03-13] MEDS: guaiFENesin ER 600 MG TAB PO ×2 (08:39→21:52)
[2021-03-13] MEDS: DOXYCYCLINE HYCLATE 100 MG TABLET PO ×2 (08:39→21:52)
[2021-03-13] MEDS: FAMOTIDINE 20 MG TABLET PO ×2 (08:39→21:52)
[2021-03-13] MEDS: CHOLECALCIFEROL (VITAMIN D3) 1,000 UNIT TABLET 1000 UNIT PO (08:39)
[2021-03-13] MEDS: ZINC SULFATE 220 MG CAPSULE PO (08:39)
[2021-03-13] MEDS: FUROSEMIDE 20 MG TABLET PO (08:39)
[2021-03-13] MEDS: ASCORBIC ACID 500 MG TABLET 1000 MG PO (08:39)
[2021-03-13] MEDS: LACTOBACILLUS ACIDOPHILUS TABLET 1 EACH PO ×3 (08:39→18:22)
[2021-03-13] MEDS: INSULIN GLARGINE 100 UNIT/ML 3ML PEN 10 UNIT SUBCUT (08:40)
[2021-03-13] MEDS: BARICITINIB 2 MG TABLET 4 MG PO (08:40)
[2021-03-13] MEDS: SUCRALFATE 1 GM TABLET PO ×4 (08:46→21:52)
[2021-03-13] MEDS: CEFDINIR 300 MG CAPSULE PO ×2 (08:47→21:52)
--- NOTE | 2021-03-13 10:40 | PC.NURSE ---
Addendum entered by Eugenia Silver R.N. 03/13/21 19:30: Transferred Pt to 206 floor care and report given to Angie PALACIOS. Addendum entered by Eugenia Silver R.N. 03/13/21 16:35: 1145-Bhagat removed, fair amount of blood to cath. Pt has voided x3 by 1600. Slight hematuria. Spo2 continues to improve 3L currently @ 97% Pt is ambulating in room and to BR unassisted. Original Note: AM shift Pt is A/o x4, eager to continue weaning off 02. Discussed need to remove bhagat prior to d/c home. Pt finally agreeable to this. Rationale explained. 5-6L O2 to keep o2 sats >88 increased need with activity. Using call light for needs.
[2021-03-13] MEDS: CYANOCOBALAMIN (VITAMIN B-12) 100 MCG TABLET PO (12:08)
--- NOTE | 2021-03-13 16:20 | PM.PN.1 ---
Subjective Subjective Date Patient Seen: 03/13/21 Interval history: COUGH HAS SIGNIFICANT IMPROVED OVERNIGHT REQUESTING TO HAVE CLEANING CATHETER REMOVED NO CHEST PAIN. NO CHEST PRESSURE NO FEVER OR CHILLS OVERNIGHT SPOKE TO NURSING IN REGARD TO THE CASE Exam Vital Signs (past 8 hours): - 03/13/21 08:52 03/13/21 12:00 03/13/21 12:30 Temperature 98.2 F Pulse Rate 84 85 Respiratory Rate 20 18 Blood Pressure 124/76 126/75 Pulse Oximetry 92 88 L 94 03/13/21 14:59 Temperature 98.3 F Pulse Rate 85 Respiratory Rate 17 Blood Pressure 131/73 Pulse Oximetry 93 Fraction of Inspired Oxygen 39 Oxygen Delivery Method Nasal Cannula Oxygen Flow Rate 5 Narrative Exam Narrative: NO ACUTE DISTRESS.? PATIENT IS ALERT, AWAKE, ORIENTED X3. HEAD ATRAUMATIC NORMOCEPHALIC NECK : SUPPLE WITHOUT ADENOPATHY NO CAROTID BRUITS EYE:? EOMI, PERRLA, NORMAL CONJUNCTIVA; NO JAUNDICE CHEST:? REGULAR RATE.? ? NO RUBS.? PMI IS NON DISPLACED.? NO MURMURS; NORMAL S1-S2 PULMONARY:? DECREASED BS OVER THE BASES.? MILD BIBASILAR CRACKLES NOTED; NO INCREASED DULLNESS TO PERCUSSION NO WHEEZING.? NO PLEURAL RUBS ABDOMEN:? OBESE BUT SOFT.? NONTENDER.? NONDISTENDED.? BOWEL SOUNDS ARE PRESENT IN ALL 4 QUADRANTS. ? EXTREMITIES: NO EDEMA..? NO CYANOSIS CLUBBING NOTED. NEURO:? CRANIAL NERVES 2-12 GROSSLY INTACT. NO FOCAL NEUROLOGICAL DEFICIT NOTED. MSK:? NORMAL RANGE OF MOTION FOR AGE.? NO JOINT EFFUSION. SKIN:? NORMAL FOR ETHNICITY; NO ECCHYMOSIS.? NO LESION. ? GOOD? TURGOR.; NO RASHES :? NORMAL EXTERNAL GENITALIA. PSYCH :? APPROPRIATE MOOD AND AFFECT.? ALERT, AWAKE, ORIENTED X3 Objective Labs Result Diagrams: 03/13/21 04:40 03/13/21 04:40 Labs: Laboratory Results - last 24 hr 03/13/21 03/13/21 04:40 04:40 WBC 11.2 H RBC 4.75 Hgb 13.7 Hct 40.7 L MCV 85.5 MCH 28.9 MCHC 33.8 RDW 12.6 Plt Count 430 H Neut % (Auto) 79.7 H Lymph % (Auto) 8.8 L [place] % (Auto) 11.1 Eos % (Auto) 0.2 L Baso % (Auto) 0.2 Neut # (Auto) 9000 H Lymph # (Auto) 1000 L [place] # (Auto) 1300 H Eos # (Auto) 0 Baso # (Auto) 0 Sodium 135 L Potassium 4.6 Chloride 100 Carbon Dioxide 30 BUN 19 Creatinine 0.73 Estimated GFR > 60.0 BUN/Creatinine Ratio 26.0 H Glucose 186 H Calcium 9.0 Total Bilirubin 0.8 AST 44 ALT 91 H Alkaline Phosphatase 67 Total Protein 7.7 Albumin 3.7 Globulin 4.0 Albumin/Globulin Ratio 0.9 L PFSH Medical History Essential hypertension High cholesterol Hypertension Obesity (BMI 30-39.9) Syncope Surgical History H/O left inguinal hernia repair Family History Mother CAD (coronary artery disease) Diabetes mellitus Father CVA (cerebral vascular accident) Social History household members: spouse Smoking Status: Never smoker Assessment & Plan Assessment & Plan narrative: PROBLEM LIST ACUTE HYPOXIC RESPIRATORY FAILURE.? IMPROVED.? ON 5 LPM PER NASAL CANNULA TODAY COVID-19 PNEUMONIA.? COMPLETED A COURSE OF REMDESIVIR OBESITY.? LIFESTYLE CHANGES RECOMMENDED DIABETES TYPE 2.? BLOOD SUGAR FOR THE CONTROL REACTIVE THROMBOCYTOSIS.? MONITOR CLOSELY PLAN 03/13 CONTINUE CURRENT MANAGEMENT FOR NOW PATIENT IS SWITCHED TO ORAL TABLET OVERNIGHT AND APPEARED TO BE DOING WELL OXYGEN SATURATION APPEARED TO BE MAINTAINING ON CURRENT OXYGEN SUPPLEMENT DEVICE PATIENT DENIED REPORT ANY FEVER OR CHILLS OVERNIGHT NO INCREASING COUGH HE DOES NOT APPEAR TO BE TOXIC HE IS ABLE TO FINISH A FULL SENTENCE WITHOUT HAVING TO STOP BECAUSE OF SHORTNESS OF BREATH CONTINUE ISOLATION PROCEDURE FOR NOW IF ABLE TO TOLERATE BETWEEN 2-3 L OF OXYGEN PER NASAL CANNULA WHILE MAINTAINING A GOOD OXYGEN SATURATION WILL DISCHARGE LIKELY IN THE MORNING 03/12 ?X-RAY REPEATED TODAY DID NOT SHOW ANY SIGNIFICANT CHANGES OR IMPROVEMENT FROM PRIOR ?WILL GO AHEAD AND START PATIENT ON ANTIBIOTICS THERAPY ? ?WILL ALSO DISCONTINUE DEXAMETHASONE INTRAVENOUSLY ?AND SWITCHED TO ORAL? TABLETS ?VITAMIN COCKTAILS WILL BE ORDERED ?AGGRESSIVE ANTI-REFLUX THERAPY ORDERED WITH? CARAFATE AND PEPCID ?AVOID PPI WHILE ON ANTIBIOTIC THERAPY DUE TO ASSOCIATED WITH C DIFF COLITIS ?WILL ALSO ADD ACIDOPHILUS TABLETS WITH EACH MEAL ?ADDITIONAL MANAGEMENT PER CLINICAL COURSE ?DISCHARGE ONCE CLINICALLY INDICATED 1/2 CONTINUE REMDESIVIR PREVIOUSLY ORDERED STRESS STEROIDS TO ORAL TABLET IN THE NEXT 24 HOURS IN PREPARATION FOR DISCHARGE CONTINUE WITH AGGRESSIVE PULMONARY TOILETING RESPIRATORY CIVIL ATTORNEY GREATLY APPRECIATED OXYGEN SUPPLEMENT TO MAINTAIN PROPER OXYGEN SATURATION ABOVE 88% AT ALL TIMES WILL REPEAT CHEST X-RAY IN THE MORNING WILL ALSO CONSIDER REPEATING ABG IF INDICATED CLINICALLY CONSIDER CT SCAN OF THE CHEST WITH CONTRAST TO RULE OUT ANY ? THROMBOTIC EVENT IF INDICATED WILL CONSIDER ADDING ANTIBIOTICS TO CURRENT MEDICAL TREATMENT CONTINUE ISOLATION PROCEDURE PER HOSPITAL PROTOCOL REPEAT LABS IN THE MORNING WELL ENCOURAGED PATIENT TO STAY MOBILE POSSIBLE ADDITIONAL MANAGEMENT PER CLINICAL COURSE DISCHARGE PER CLINICAL COURSE PROGNOSIS IS GUARDED Time Spent With Patient Critical Care time: I spent a total of [] minutes of critical care time on this patient's care today; this time is exclusive of procedural time. Quality VTE Deep Vein Thrombosis/Pulmonary Embolism Present on Admission: No
[2021-03-13] MEDS: SODIUM CHLORIDE 0.9% FLUSH 10 ML IV (21:52)
[2021-03-13] MEDS: TAMSULOSIN 0.4 MG CAPSULE PO (21:52)
[2021-03-13] MEDS: INSULIN GLARGINE 100 UNIT/ML 3ML PEN SUBCUT (21:53)
[2021-03-14 00:49] VITALS: BP 129/85; PULSE 78; RESP 18; TEMP 37.1; O2SAT 94
[2021-03-14 04:00] VITALS: PULSE 84; O2SAT 97
[2021-03-14] MEDS: dexAMETHasone 4 MG TABLET PO ×3 (05:14→09:41)
[2021-03-14 06:31] VITALS: PULSE 78; O2SAT 95
[2021-03-14 06:41] LABS: Add Manual Diff / Slide Review YES; Hematocrit 41.6 % (41-53); Hemoglobin 14.1 g/dL (13.5-17.5); Mean Corpuscular HGB Conc 33.8 % (30-36); Mean Corpuscular Hemoglobin 28.7 PG (26-34); Platelet Count 492 X10^3/uL (150-400); Red Cell Distribution Width 12.4 % (11.6-14.8); White Blood Cell Count 14.2 X10^3/uL (4.5-11.0)
[2021-03-14 06:46] LABS: Alanine Aminotransferase 108 IU/L (<50); Albumin 3.8 g/dL (3.5-5.0); Albumin Globulin Ratio 0.9 (1.0-2.8); Alkaline Phosphatase 57 U/L (38-126); Aspartate Aminotransferase 53 IU/L (17-59); BUN Creatinine Ratio 22.6 (6-22); Bilirubin Total 0.9 mg/dL (0.2-1.3); Blood Urea Nitrogen 19 mg/dL (9-20); Calcium 9.1 mg/dL (8.4-10.2); Carbon Dioxide 33 mmol/L (22-32); Chloride 98 mmol/L (98-107); Estimated Glomerular Filt Rate > 60.0 mL/min (>60); Globulin 4.1 g/dL (1.7-4.1); Glucose 175 mg/dL (70-100); HEMOLYSIS 35 (0-50); Potassium 4.6 mmol/L (3.4-5.1); Sodium 133 mmol/L (137-145); Total Protein 7.9 g/dL (6.3-8.2)
[2021-03-14 07:12] LABS: Neutrophils Absolute Manual 11786 /uL (3000-5900); RBC Morphology Normal Morphology; Total Cells Counted 100
[2021-03-14 09:27] VITALS: BP 127/77; PULSE 90; RESP 18; TEMP 36.7; O2SAT 89
[2021-03-14] MEDS: CEFDINIR 300 MG CAPSULE PO (09:28)
[2021-03-14] MEDS: CYANOCOBALAMIN (VITAMIN B-12) 100 MCG TABLET PO (09:28)
[2021-03-14] MEDS: ASCORBIC ACID 500 MG TABLET 1000 MG PO (09:28)
[2021-03-14] MEDS: ZINC SULFATE 220 MG CAPSULE PO (09:29)
[2021-03-14] MEDS: guaiFENesin ER 600 MG TAB PO (09:29)
[2021-03-14] MEDS: ENOXAPARIN 40 MG/0.4 ML SYRINGE SUBCUT ×2 (09:29→09:37)
[2021-03-14] MEDS: FUROSEMIDE 20 MG TABLET PO ×2 (09:29→09:42)
[2021-03-14] MEDS: CHOLECALCIFEROL (VITAMIN D3) 1,000 UNIT TABLET 1000 UNIT PO (09:29)
[2021-03-14] MEDS: BARICITINIB 2 MG TABLET 4 MG PO (09:37)
[2021-03-14] MEDS: INSULIN GLARGINE 100 UNIT/ML 3ML PEN 10 UNIT SUBCUT (09:38)
[2021-03-14] MEDS: DOXYCYCLINE HYCLATE 100 MG TABLET PO (09:38)
[2021-03-14] MEDS: SUCRALFATE 1 GM TABLET PO (09:41)
--- NOTE | 2021-03-14 10:23 | DIET.PN1 ---
Dietary Progress Note Assessment: 55y M c covid PNA screened by RD for LOS d6. Pt overall improving. POs 100% every meal x2d. Ht: 180.34 cm Wt: 109.7 kg BMI: 35.6 Last BM: 03/13/21 (03/13/21 16:42) MNA: 13 [place] Score: 23 Diet: 03/08/21 Breakfast Carbohydrate Consistent Diet Diet Modifications: Carbohydrate level: Large (4 CHO) Bedtime snack: Yes Nutrition Percent Meal Consumed 100% 03/13/21 18:00 Percent Meal Consumed 100% 03/13/21 14:44 Percent Meal Consumed 100% 03/13/21 09:02 Percent Meal Consumed 100% 03/12/21 21:36 Labs: RBC 4.90 X10^6/uL (4.5-5.9) 03/14/21 06:25 Hgb 14.1 g/dL (13.5-17.5) 03/14/21 06:25 Hct 41.6 % (41-53) 03/14/21 06:25 Creatinine 0.84 mg/dL (0.66-1.25) 03/14/21 06:25 Lactate 1.1 mmol/L (0.7-2.1) 03/08/21 00:50 Ferritin 774 ng/mL (18-464) H 03/08/21 00:50 NT-Pro-B Natriuret Pep 25 pg/mL (<125) 03/08/21 00:50 Nutrition Diagnosis: none noted. Electronically Signed by: Faiza Zimmer 03/14/21 10:23 Clinical Dietitian [address] [address]
--- NOTE | 2021-03-14 10:29 | PM.DS.1 ---
History of Present Illness History of Present Illness Date Patient Seen: 03/14/21 Chief complaint: covid+/hard time breathing Narrative: History of Present Illness History of Present Illness Narrative: Glenroy Sloan is 55 male nonsmoker with HTN and newly diagnosed DM returns with worsening shortness of breath. He was admitted on 03/02 and discharged 2 days ago on 03/04 now presents with worsening SOB and hypoxemia. He was admitted with COVID pneumonia and received remdesivir and Decadron, he was doing relatively well.? On 03/04, he was discharged home after being set up with home oxygen concentrator.? Upon discharge, he states he was feeling better until tonight when he started to cough and he became increasingly short of breath and when noted pulse ox in the low 80s she recommended he return to the ED.? He has had no fever, nausea, vomiting or diarrhea.? He was not vaccinated.? When the patient was discharged she was given prescriptions and diabetic Education.? Since his discharge he was not able to obtain the supplies to monitor his blood sugars. Chest x-ray indicated ?Bilateral patchy and consolidative opacities present most severe in the base.?On admission the patient's temperature is 99?, blood pressure 157/85, heart rate 111, respiratory rate 26, his oxygen a at 96% on 60 L with an FiO2 of 71, he weighs 116 kg with a BMI of 34.8.? His CBC is essentially unremarkable with the exception of lymphopenia, D-dimer was 413 within normal limits for age, his ABG pH was 7.47, pCO2 33.1, PO2 72, bicarb 24, CO2 25, ABG O2 saturation 95%.? Sodium was 134, glucose 168, lactate normal, ferritin 774, AST 113, ALT 141, lactate dehydrogenase was 1062, total CK was 832, CK-MB is 3.48, C-reactive protein is 12.8, proBNP within normal limits, and procalcitonin is 0.13.? COVID-19 PCR done on March 02 was positive. Discharge Providers Provider Date of admission: 03/08/21 02:35 Discharge Date: 03/14/21 Primary care physician: Sharan Willis DO Consults: 03/08/21 02:47 Consult to Tele-quantitative analyst Routine Comment: Consulting Provider: [facility] [employer] Reason for consultation: [id number] services Has provider been notified: Yes Discharge provider: Everton Corbin, Summary Hospital Course Discharge Diagnosis: ACUTE HYPOXIC RESPIRATORY FAILURE.? IMPROVED.? COVID-19 PNEUMONIA.? COMPLETED A COURSE OF REMDESIVIR OBESITY.? LIFESTYLE CHANGES RECOMMENDED DIABETES TYPE 2.? BLOOD SUGAR FAIRLY CONTROLLED REACTIVE THROMBOCYTOSIS.? MONITOR CLOSELY HYPERTENSION PER HISTORY LEUKOCYTOSIS. REACTIVE HYPONATREMIA. LIKELY MILD SIADH Hospital Course: THIS IS A 55-YEAR-OLD MALE WITH A HISTORY OF HYPERTENSION AND DIABETES PRESENTED TO THE HOSPITAL WITH SOME RESPIRATORY FAILURE AND TREATED FOR COVID-19 PNEUMONIA. PATIENT WAS PREVIOUSLY IN THE HOSPITAL AND DISCHARGED BUT RETURN SUBSEQUENTLY FOR WORSENING SYMPTOMS. AT THIS TIME PATIENT HAS SHOWN SIGNIFICANT IMPROVEMENT. HE HAS COMPLETED ANOTHER COURSE OF REMDESIVIR. HE IS ON 2-3 L PER NASAL CANNULA OXYGEN AND MAINTAINING PROPER OXYGEN SATURATION. HE IS ABLE TO FINISH A FULL SENTENCE WITHOUT HAVING TO STOP BECAUSE OF SHORTNESS OF BREATH HE WILL BE DISCHARGED HOWEVER WILL CONTINUE AGGRESSIVE TREATMENT WITH ANTIBIOTIC THERAPY. WE ALSO WILL ORDER A STEROID TAPER DOSE WHICH WILL BE DONE SLOWLY. WILL ALSO ORDER DUONEB TREATMENTS WELL VITAMIN COCKTAILS. BECAUSE OF THE STEROID USE, WE WILL CONTINUE ON SLIDING SCALE INSULIN ONLY FOR NOW PATIENT HAD BEEN ON LANTUS WHILE IN THE HOSPITAL. HOWEVER WE WILL ADD GLYBURIDE TO HIS MEDICAL REGIMEN WHICH INCLUDED METFORMIN. FOR HIS BLOOD PRESSURE, PATIENT WILL BE CONTINUED ON LOSARTAN. A LOW-DOSE LASIX ORDERED WELL LOW-SODIUM DIET WILL BE RECOMMENDED. ADDITIONAL MANAGEMENT WILL BE DEFERRED TO HIS OUTPATIENT PROVIDERS. PATIENT IS REQUESTED TO FOLLOW CDC AND LOCAL AUTHORITIES RECOMMENDATIONS IN REGARD TO CURRENT PANDEMIC Status at Discharge Cognitive/behavioral status at discharge: oriented Functional status at discharge: independent ambulation Overall status at discharge: patient is progressing back to baseline Time Spent with Patient Time spent: Greater than 30 minutes Exam Vital Signs (past 8 hours): - 03/14/21 04:00 03/14/21 06:31 03/14/21 09:27 Temperature 98.0 F Pulse Rate 84 78 90 Respiratory Rate 18 Blood Pressure 127/77 Pulse Oximetry 97 95 89 L Fraction of Inspired Oxygen 39 Oxygen Delivery Method High Flow Nasal Cannula Oxygen Flow Rate 2 Narrative Exam Narrative: NO ACUTE DISTRESS.? PATIENT IS ALERT, AWAKE, ORIENTED X3. HEAD ATRAUMATIC NORMOCEPHALIC NECK : SUPPLE WITHOUT ADENOPATHY NO CAROTID BRUITS EYE:? EOMI, PERRLA, NORMAL CONJUNCTIVA; NO JAUNDICE CHEST:? REGULAR RATE.? ? NO RUBS.? PMI IS NON DISPLACED.? NO MURMURS; NORMAL S1-S2 PULMONARY:? DECREASED BS OVER THE BASES.? MILD BIBASILAR CRACKLES NOTED; NO INCREASED DULLNESS TO PERCUSSION NO WHEEZING.? NO PLEURAL RUBS ABDOMEN:? OBESE BUT SOFT.? NONTENDER.? NONDISTENDED.? BOWEL SOUNDS ARE PRESENT IN ALL 4 QUADRANTS. ? EXTREMITIES: NO EDEMA..? NO CYANOSIS CLUBBING NOTED. NEURO:? CRANIAL NERVES 2-12 GROSSLY INTACT. NO FOCAL NEUROLOGICAL DEFICIT NOTED. MSK:? NORMAL RANGE OF MOTION FOR AGE.? NO JOINT EFFUSION. SKIN:? NORMAL FOR ETHNICITY; NO ECCHYMOSIS.? NO LESION. ? GOOD? TURGOR.; NO RASHES :? NORMAL EXTERNAL GENITALIA. PSYCH :? APPROPRIATE MOOD AND AFFECT.? ALERT, AWAKE, ORIENTED X3 Objective Labs Result Diagrams: 03/14/21 06:25 03/14/21 06:25 Labs: Laboratory Results - last 24 hr 03/14/21 03/14/21 06:25 06:25 WBC 14.2 H RBC 4.90 Hgb 14.1 Hct 41.6 MCV 85.0 MCH 28.7 MCHC 33.8 RDW 12.4 Plt Count 492 H Neut % (Auto) Not Reportable Lymph % (Auto) Not Reportable Baldwin % (Auto) Not Reportable Eos % (Auto) Not Reportable Baso % (Auto) Not Reportable Lymph # (Auto) Not Reportable Baldwin # (Auto) Not Reportable Baso # (Auto) Not Reportable Total Counted 100 Seg Neutrophils % 82.0 H Band Neutrophils % 1.0 L Lymphocytes % (Manual) 6.0 L Atypical Lymphs % 2.0 H Monocytes % (Manual) 9.0 Neutrophils # (Manual) 03694 H RBC Morphology Normal morphology Sodium 133 L Potassium 4.6 Chloride 98 Carbon Dioxide 33 H BUN 19 Creatinine 0.84 Estimated GFR > 60.0 BUN/Creatinine Ratio 22.6 H Glucose 175 H Calcium 9.1 Total Bilirubin 0.9 AST 53 ALT 108 H Alkaline Phosphatase 57 Total Protein 7.9 Albumin 3.8 Globulin 4.1 Albumin/Globulin Ratio 0.9 L [facility] Medical History Essential hypertension High cholesterol Hypertension Obesity (BMI 30-39.9) Syncope Surgical History H/O left inguinal hernia repair Family History Mother CAD (coronary artery disease) Diabetes mellitus Father CVA (cerebral vascular accident) Social History household members: spouse Smoking Status: Never smoker Discharge Plan Discharge Plan Patient Disposition: Home Discharge orders & Medications Prescriptions: New cyanocobalamin (vitamin B-12) [Vitamin B-12] 100 mcg Tablet 100 mcg PO DAILY Qty: 30 2RF ascorbic acid (vitamin C) [Vitamin C] 500 mg Tablet 1,000 mg PO DAILY Qty: 120 2RF codeine-guaifenesin 10-100 mg/5 mL Liquid 10 ml PO Q6H PRN (Reason: Cough) Qty: 120 0RF cefdinir 300 mg Capsule 300 mg PO BID Qty: 20 0RF cholecalciferol (vitamin D3) 25 mcg (1,000 unit) Tablet 1,000 unit PO DAILY Qty: 30 2RF Bacid 1 billion cell- 250 mg Tablet 1 ea PO TIDWM Qty: 90 2RF dexamethasone 1 mg tablet 1 mg PO DIRECTED Qty: 30 0RF Rx Instructions: 4MG PO BID X 2 DAYS 3MG PO BID X 2 DAYS 2MG PO BID X 2 DAYS 1MG PO DAILY X 2 DAYS 1MG PO DAILY X 3 DAYS O.5MG PO DAILY X 3 DAYS STOP doxycycline hyclate 100 mg Tablet 100 mg PO BID Qty: 20 0RF famotidine 40 mg tablet 20 mg PO BID Qty: 60 0RF furosemide 20 mg Tablet 20 mg PO DAILY Qty: 30 2RF guaifenesin [Mucus Relief ER] 600 mg Tablet Extended Release 12hr 600 mg PO BID Qty: 20 0RF sucralfate 1 gram Tablet 1 gm PO ACHS Qty: 120 2RF insulin lispro [Humalog U-100 Insulin] 100 unit/mL Solution 0 unit SUBCUT ACHS Qty: 10 0RF zinc sulfate 50 mg zinc (220 mg) Capsule 220 mg PO DAILY Qty: 30 2RF albuterol sulfate 90 mcg/actuation aerosol powdr breath activated 2 inh inhalation Q4H PRN (Reason: shortness of breath or wheezing) Qty: 1 2RF ipratropium-albuterol 0.5 mg-3 mg(2.5 mg base)/3 mL solution for nebulization 3 ml inhalation Q4-6H PRN (Reason: shortness of breath or wheezing) Qty: 90 1RF aspirin 81 mg tablet,delayed release (DR/EC) 162 mg PO DAILY Qty: 60 2RF glyburide 5 mg tablet 5 mg PO DAILY Qty: 30 2RF Continued losartan 50 mg Tablet 50 mg PO DAILY Qty: 30 0RF metformin 500 mg Tablet 500 mg PO 0800,1700 Qty: 60 0RF Follow up/Referrals: Sharan Willis DO [Primary Care Provider] - Diet/Activity/Treatments Diet: Carb-consistent/Diabetic, Low-fat, Low-sodium and Low-cholesterol Activity: TOLERATED Skin/Wound/Dressing Care Report to your healthcare provider any signs of infection, such as:: chills, fever and night sweats Discharge Data Primary Care Provider: Sharan Willis Quality VTE Deep Vein Thrombosis/Pulmonary Embolism Present on Admission: No
--- NOTE | 2021-03-14 11:31 | PC.NURSE ---
Addendum entered by Odette Gordillo R.N. 03/14/21 12:00: Pt ride here, escorted by staff via W/C to waiting vehicle;. Original Note: :Pt condition essentialyunchanged. Orders for D/C given. HL discontinued intact. Home instructions & RX given w/apparent understanding Awaiting transportation home.
--- NOTE | 2021-03-14 13:52 | CM.DPC ---
DCP Discharge Home Per MD, pt is medically stable to d/c home with no identified barriers to discharge. Per RN, pt on 2LO2 and has home oxygen at baseline and bhagat out and voiding independently and oral meds and no concerns with discharge and pt's ride arrived and taken down to POV. Plan: Patient discharged home today via family POV and no SW needs at this time. REID Welch
== END 2021-03-14 11:45 | disposition home or self-care (01) | DRG 177 ==
LOC: ED 02:28 → ICU 03:03 → AC 03-13 07:42 → ICU 03-13 07:42 → AC 03-13 18:43
PROVIDERS: Hospitalist; Internal Medicine; Internal Medicine Critical Care Medicine; Admitting Provider Nurse Practitioner Family; Emergency Provider Emergency Medicine; PCP Family Medicine; Referring Provider Emergency Medicine; Visit Provider Nurse Practitioner Family
DX: U07.1 COVID-19 (principal); J12.82 Pneumonia due to coronavirus disease 2019; J96.01 Acute respiratory failure with hypoxia; D75.838 Other thrombocytosis; E11.65 Type 2 diabetes mellitus with hyperglycemia; I10 Essential (primary) hypertension; Z79.84 Long term (current) use of oral hypoglycemic drugs
CPT/HCPCS: 36415; 36600; 71045; 80048; 80053; 80076; 82550; 82553; 82728; 82805; 82962; 83605; 83615; 83735; 83880; 84145; 84484; 85007; 85025; 85027; 85379; 86140; 86850; 86900; 86901; 87040; 87797; 93306; 94762; 96365; 96375; 99285; A9270; J1100; J1650; J1815; J1940